=== PATIENT | female | born 1930 | race Caucasian/White ===

== ENCOUNTER 2017-04-19 08:27 | Inpatient (IN) | payer MEDICARE ==
[2017-04-19 09:10] LABS: #Eosinphils 0.1 thou/uL (0.0-0.7); #Lymphocytes 0.9 thou/uL (1.20-3.40); #Monocytes 0.7 thou/uL (0.11-0.59); #Neutrophils 3.9 thou/uL (1.40-6.50); %Basophils 0.8 % (0.0-1.0); %Eosinophils 1.4 % (0.0-10.0); %Lymphocytes 15.5 % (21.0-51.0); %Monocytes 13.3 % (0.0-10.0); Hematocrit 35.7 % (36.0-47.0); Mean Platelet Volume 6.2 fL (7.4-10.4); Red Blood Cell (RBC) Count 3.72 mill/uL (4.20-5.40); White Blood Cell (WBC) Count 5.6 thou/uL (4.8-10.8)
[2017-04-19 09:18] LABS: PTT 30.4 SEC (22.9-36.1); Prothrombin Time 13.6 SEC (12.0-14.7)
[2017-04-19 09:28] LABS: Lactic Acid - Sepsis 0.7 mmol/L (0.5-2.2)
[2017-04-19 09:31] LABS: ALT (SGPT) 8 U/L (8-55); AST (SGOT) 20 U/L (5-34); Alkaline Phosphatase 62 U/L (40-150); Anion Gap 6 mmol/L (10-20); BUN (Urea Nitrogen) 12 mg/dL (9.8-20.1); Bilirubin, Total 0.9 mg/dL (0.2-1.2); CK (CPK) 89 U/L (29-168); Calc. Creatinine Clearance 0 mL/min (70-130); Calcium 9.5 mg/dL (7.8-10.44); Carbon Dioxide 33 mmol/L (23-31); Chloride 104 mmol/L (98-107); Estimated GFR-MDRD 75; Protein, Total 7.2 g/dL (6.0-8.3)
[2017-04-19 09:36] LABS: Troponin I Less than 0.010 ng/mL (< 0.028)
--- NOTE | 2017-04-19 09:58 | RAD ---
PORTABLE CHEST: Date: 04/19/17 HISTORY: Dyspnea. COMPARISON: 04/19/17. FINDINGS: Cardiomegaly with prominent aortic calcification again noted. The lungs remain clear of infiltrate. N o evidence of vascular congestion or edema. Deformities of both humeral heads again noted. IMPRESSION: No acute finding or interval change noted. POS: [facility]
--- NOTE | 2017-04-19 10:11 | ULT ---
BILATERAL LOWER EXTREMITY VENOUS DUPLEX STUDY: Date: 04/19/17 HISTORY: Bilateral lower extremity pain and edema with redness. FINDINGS: Deep veins of both lower extremities evaluated with ultrasound and Doppler. Color Doppler, spectral a nalysis, and compression studies performed. Deep veins of both lower extremities show normal compression and blood flow. No evidence of deep veno us thrombosis. IMPRESSION: No evidence of lower extremity deep venous thrombosis identified. POS: [facility]
[2017-04-19 10:55] LABS: Bilirubin Negative (Negative); Blood, Urine Negative (Negative); Glucose, Urine (Dipstick) Negative (Negative); Ketone, Urine Trace mg/dL (Negative); Nitrite Negative (Negative); Protein, Urine (Dipstick) Negative (Neg-Trace); Urobilinogen 0.2 mg/dL (0.2-1.0)
--- NOTE | 2017-04-19 11:04 | CT ---
CTA OF THE THORAX UTILIZING IV CONTRAST WITH PE PROTOCOL AND 3D REFORMATTED IMAGING: Date: 04/19/17 INDICATION: 86-year-old female with dyspnea, bilateral leg swelling, and redness. COMPARISON: CT of the chest, abdomen, and pelvis dated 02/24/11. FINDINGS: No central or segmental pulmonary embolus is evident. There is stable enlargement of the pulmonary arterial tree. Vascular calcifications involving the cor onary arteries and thoracic aorta. There is moderate cardiomegaly. There is a small pericardial effus ion. No pathologically enlarged lymph nodes are evident. There is fluid in the esophagus which may be related to dysmotility or reflux. There is worsening scattered reticular nodularity seen in portions of the right upper lobe and right lower lobe, particularly on image 55 of series 2 and image 38 of s eries 2. There is a new peripheral noncalcified subpleural pulmonary nodule within the right upper lo be best seen on image 31 of series 2. There is enlarged subpleural pulmonary nodule within the right lower lobe on image 60 of series 2 measuring 9.0 mm. There is a stable sub-4 mm, subpleural pulmonary nodule in the left upper lobe. There is scattered central lobular emphysema. There is a fat-containi ng left Bochdalek's hernia. There are calcified granuloma within the liver. There is stable scoliosis of the thoracic spine. There is diffuse osteopenia. No acute osseous abnormality is evident. IMPRESSION: 1. No central or segmental pulmonary embolus. 2. New nodularity within the right upper and right lower lobe. Short-term follow-up in 6-8 weeks is recommended to document stability. 3. Stable emphysema. 4. Stable enlargement of the pulmonary arterial tree likely related to underlying secondary pulmonar y artery hypertension. 5. Findings of prior granulomatous disease. POS: [facility]
[2017-04-19] MEDS ORDERED: methylPREDNISolone Sod Succ/PF 125 MG/2 ML VIAL ONE (12:03)
[2017-04-19] MEDS ORDERED: Water For Inject, Bacteriostat 30 ML ONE (12:03)
--- NOTE | 2017-04-19 13:05 | HP ---
PRIMARY CARE PHYSICIAN: [facility] call admission. REASON FOR ADMISSION: Acute hypoxic respiratory failure, bilateral lower extremity cellulitis. HISTORY OF PRESENT ILLNESS: An 86-year-old female who is a very poor historian , who lives at [facility]. From there, she was sent to the emergency room because of bilateral lower extremity swelling, redness and pain. When she presented to emergency room, she was saturating only 80% on room air and with her oxygen saturation improved to normal. The patient does not report any fever, but she does report congestion in her chest. She does report a cough and she is feeling shortness of breath. She does report lower extremity pain. She denies any calf tenderness. She denies any immobilization. In the emergency room, patient had a full workup done with a CT angiography, which did not show any pulmonary embolism. It showed stable emphysema and new nodularity in the right upper and right lower lobe. Ultrasound was negative for any deep vein thrombosis in both lower extremity and chest x-ray was not showing any new finding. Routine blood test in the emergency room was unremarkable. Patient has elevated BNP, but patient never had any diagnosis of congestive heart failure. ALLERGIES: PENICILLIN. CURRENT HOME MEDICATIONS: Celexa 20 mg daily, hyoscyamine 0.125 mg 3 times daily p.r.n., Synthroid 100 mcg p.o. daily, travoprost ophthalmic drops as needed, loperamide as needed. REVIEW OF SYSTEMS: The following complete review of systems was negative, unless otherwise mentioned in the HPI or below: CONSTITUTIONAL: Weight loss or gain, ability to conduct usual activities. SKIN: Rash, itching. EYES: Double vision, pain. ENT/MOUTH: Nose bleeding, neck stiffness, pain, tenderness. CARDIOVASCULAR: Palpitations, dyspnea on exertion, orthopnea. RESPIRATORY: Shortness of breath, wheezing, cough, hemoptysis, fever or night sweats. GASTROINTESTINAL: Poor appetite, abdominal pain, heartburn, nausea, vomiting, constipation, or diarrhea. GENITOURINARY: Urgency, frequency, dysuria, nocturia. MUSCULOSKELETAL: Pain, swelling. NEUROLOGIC/PSYCHIATRIC: Anxiety, depression. ALLERGY/IMMUNOLOGIC: Skin rash, bleeding tendency. The review of systems is limited because of patient's level of alertness and that is why is not reliable. PAST MEDICAL HISTORY: Hypertension, pulmonary fibrosis, COPD, dementia, osteoporosis, gastroesophageal reflux disease, hypothyroidism and protein- calorie malnutrition. PAST SURGICAL HISTORY: Cholecystectomy, recorder placed in her left chest wall for her heart monitoring. PAST PSYCHIATRIC HISTORY: Anxiety and depression. SOCIAL HISTORY: The patient lives at [facility]. No history of tobacco, alcohol or illicit drug abuse. FAMILY HISTORY: Unable to obtain from patient. The patient does not have any clue of about any family history. EMERGENCY ROOM COURSE: Patient is given Solu-Medrol 125 mg and DuoNeb therapy x2. PHYSICAL EXAMINATION: VITAL SIGNS: On arrival, blood pressure 166/88, pulse 88, respiratory rate 21, temperature 98.5, saturation 92% on 2 liter oxygen. Weight 43 kilograms. GENERAL: The patient is thin appearing, no obvious acute distress. HEAD: Normocephalic, atraumatic. EYES: Pupils round, reactive to light. Extraocular muscles intact. ENT: Oropharynx within normal limits. Moist mucous membranes. No oral lesions. No pharyngeal erythema, no exudate. NECK: Supple, no JVD, no thyromegaly, no carotid bruit, no meningeal signs of irritation. LUNGS: Bilateral coarse breath sounds. Air entry reduced. Few end expiratory wheezing heard. No rales noted. CARDIAC: S1, S2 regular. No murmur, no gallop, no rub. ABDOMEN: Soft, bowel sounds present, nontender, nondistended. No organomegaly , no mass, no suprapubic tenderness. BACK: Unremarkable. No CVA tenderness. EXTREMITIES: Upper extremity: Passive movement of all joints are normal. Lower extremity: Bilateral lower extremity edema noted, erythema noted, tenderness noted. No calf tenderness. Distal pulsation intake. SKIN: Cellulitis type of picture in both lower extremities. HEMATOLOGICAL: No lymphadenopathy. PSYCHIATRIC: Normal affect. NEUROLOGIC: Grossly nonfocal examination. Patient is moving all 4 limbs, plantar bilateral flexor. SIGNIFICANT LABS: EKG based on my review reveals normal sinus rhythm, left atrial enlargement. CT angiography negative for pulmonary embolism, stable emphysema, new nodularity of right upper and right lower lobe. Ultrasound of lower extremity negative for any DVT. SIGNIFICANT LABS: WBC 5.6, hemoglobin 11.4, platelet 243. INR 1.0. BMP: Sodium 139, potassium 4.1, chloride 104, carbon dioxide 33, anion gap 6, BUN 12 , creatinine 0.73, glucose 83, calcium 9.5. Lactic acid 0.7. LFT: AST 20, ALT 8, alkaline phosphatase 62, albumin 4.2, CK-MB 4.1, CK 89. Troponin I less than 0.010. BNP 107.0. Urinalysis is normal. ASSESSMENT AND PLAN/IMPRESSION: 1. Acute on chronic hypoxic respiratory failure with hypoxia. 2. Bilateral lower extremity cellulitis. 3. Elevated BNP, rule out diastolic congestive heart failure. 4. Chronic obstructive pulmonary disease/pulmonary fibrosis with exacerbation. 5. Moderate to severe protein-calorie malnutrition. 6. Anemia, normocytic normochromic. 7. Hypothyroidism. 8. Glaucoma. 9. Anxiety and depression. 10. Hypertension. PLAN: At this point, thromboembolic disorder completely excluded with a CT angio and ultrasound of lower extremity. This patient has underlying hypoxia that may be related with her underlying COPD/pulmonary fibrosis flare up. We will obtain echocardiography to assess ejection fraction and other structural abnormality. We will continue with Solu-Medrol 20 mg IV q.8 hourly, DuoNeb therapy q.6 hourly, Dulera 2 puffs inhalation b.i.d. We will start empiric antibiotic therapy with Rocephin and vancomycin. We will monitor on telemetry floor and do serial cardiac enzymes to rule out acute coronary syndrome. Deep venous thrombosis prophylaxis, Lovenox 30 mg subcutaneously daily. Gastrointestinal prophylaxis, Pepcid 20 mg p.o. b.i.d. CODE STATUS is uncertain. At this point, we will keep as a FULL CODE. No family member available on phone or bedside to discuss code status and the patient cannot make her own decisions. Disposition plan based on clinical course, we are expecting patient's stay in hospital more than 2 midnights. IN EVENING PT SON CAME AND HE IS MPOA, DISCUSSED CODE STATUS WITH HIM AND CONFIRMED DNR STATUS AND ANSWERED ALL HIS QUESTIONS AND DNR ORDER WRITTEN PER SON'S REQUEST ANNIA
[2017-04-19 13:13] LABS: Troponin I 0.017 ng/mL (< 0.028)
[2017-04-19] MEDS ORDERED: Ondansetron HCl/PF 4 MG/2 ML Vial IVP PRN ×2 (13:53→14:00)
[2017-04-19] MEDS ORDERED: Acetaminophen 325 MG TAB PO PRN ×2 (13:53→14:00)
[2017-04-19] MEDS ORDERED: Ondansetron ODT 4 MG TAB PO PRN ×2 (13:53→14:00)
[2017-04-19] MEDS ORDERED: Mag-Al 1200 mg/1200 mg/30 ML UDCUP PO PRN (14:00)
[2017-04-19] MEDS ORDERED: Sodium Chloride 0.9% 1,000 ML IV SCH (14:00)
[2017-04-19] MEDS ORDERED: Milk Of Magnesia 30 ML UDCUP PO PRN (14:00)
[2017-04-19] MEDS ORDERED: Loratadine 10 MG TAB PO PRN (14:00)
[2017-04-19] MEDS ORDERED: Artificial Tears 18 DROP/0.9 ML EA EYE PRN (14:00)
[2017-04-19] MEDS ORDERED: Senokot 8.6 MG TAB PO PRN (14:00)
[2017-04-19] MEDS ORDERED: hydrALAZINE 20 MG/ML VIAL SLOW IVP PRN (14:00)
[2017-04-19] MEDS ORDERED: cefTRIAXone\\ROCEPHIN 1 GM in Sodium Chloride 0.9% 100 ML IVPB SCH (14:00)
[2017-04-19] MEDS ORDERED: Eucerin (Mineral Oil/Petrolatum,White) 30 gm Jar TOP PRN (14:00)
[2017-04-19] MEDS ORDERED: Chloraseptic Spray 180 ml Bottle PO PRN (14:00)
[2017-04-19] MEDS ORDERED: Sodium Chloride 0.65% Nasal 44 ML BOT EA NARE PRN (14:00)
[2017-04-19] MEDS ORDERED: Loperamide HCl 2 MG CAP PO PRN (14:00)
[2017-04-19 14:04] VITALS: BMI 18.5
[2017-04-19 15:24] LABS: Troponin I 0.012 ng/mL (< 0.028)
[2017-04-19] MEDS ORDERED: ISOVUE-370 76%-LOCM 1 ML ONE (15:52)
[2017-04-19] MEDS: cefTRIAXone\\ROCEPHIN 1 GM, Syringe 0.4 ML in Sterile Water 9.6 ML SLOW IVP SCH (15:54)
[2017-04-19] MEDS: Vancomycin HCl 500 MG, Admixture Fee 1 EACH in Sodium Chloride 0.9% 100 ML IVPB SCH (15:57)
[2017-04-19] MEDS ORDERED: methylPREDNISolone Sod Succ/PF 125 MG/2 ML VIAL IVP SCH (18:00)
[2017-04-19] MEDS: Famotidine 20 MG TAB PO SCH (22:09)
[2017-04-20 05:54] LABS: #Lymphocytes 0.5 thou/uL (1.20-3.40); #Monocytes 0.2 thou/uL (0.11-0.59); #Neutrophils 3.2 thou/uL (1.40-6.50); %Basophils 0.7 % (0.0-1.0); %Eosinophils 0.4 % (0.0-10.0); Hematocrit 32.3 % (36.0-47.0); Mean Platelet Volume 6.9 fL (7.4-10.4); Red Blood Cell (RBC) Count 3.37 mill/uL (4.20-5.40); White Blood Cell (WBC) Count 3.8 thou/uL (4.8-10.8)
[2017-04-20] MEDS ORDERED: Levothyroxine Sodium 100 MCG TAB PO SCH (06:00)
[2017-04-20 06:15] LABS: Anion Gap 12 mmol/L (10-20); BUN (Urea Nitrogen) 14 mg/dL (9.8-20.1); Calc. Creatinine Clearance 38 mL/min (70-130); Calcium 8.6 mg/dL (7.8-10.44); Carbon Dioxide 25 mmol/L (23-31); Chloride 101 mmol/L (98-107); Estimated GFR-MDRD 79
[2017-04-20] MEDS ORDERED: Citalopram 20 MG TAB PO SCH (09:00)
--- NOTE | 2017-04-20 09:23 | PDOC.PN ---
- Subjective Encounter Start Date: 04/20/17 Encounter Start Time: 08:00 -: old records requested/rev Patient seen and examined. No new complaints. No overnight events - Objective Resuscitation Status: Resuscitation Status DNR:Do Not Resuscitate MAR Reviewed: Yes Vital Signs & Weight: Vital Signs (12 hours) Temp Pulse Resp BP Pulse Ox 04/20/17 08:06 88 L 04/20/17 08:05 93 16 04/20/17 08:00 97.6 F 95 16 141/69 H 94 L 04/20/17 04:00 97.6 F 90 14 128/60 94 L 04/20/17 00:55 98 Weight Weight 95 lb 0.308 oz I&O: 04/19/17 04/20/17 04/21/17 06:59 06:59 06:59 Intake Total 1477 Output Total 650 Balance 827 Result Diagrams: 04/20/17 05:16 04/20/17 05:16 EKG Reviewed by me: Yes Phys Exam - Physical Examination Constitutional: NAD HEENT: PERRLA, moist MMs, sclera anicteric Neck: no JVD, supple Respiratory: no rales, wheezing present Cardiovascular: RRR, no significant murmur, no rub Gastrointestinal: soft, non-tender, no distention, positive bowel sounds Musculoskeletal: pulses present, edema present cellulitis improving Neurological: non-focal, normal sensation Psychiatric: normal affect Skin: no rash, normal turgor Dx/Plan (1) Acute respiratory failure with hypoxia Code(s): J96.01 - ACUTE RESPIRATORY FAILURE WITH HYPOXIA Status: Acute (2) Anxiety and depression Code(s): F41.8 - OTHER SPECIFIED ANXIETY DISORDERS Status: Acute (3) Cellulitis of both lower extremities Code(s): L03.115 - CELLULITIS OF RIGHT LOWER LIMB; L03.116 - CELLULITIS OF LEFT LOWER LIMB Status: Acute (4) Anemia, normocytic normochromic Code(s): D64.9 - ANEMIA, UNSPECIFIED Status: Chronic (5) Dementia Code(s): F03.90 - UNSPECIFIED DEMENTIA WITHOUT BEHAVIORAL DISTURBANCE Status: Chronic (6) HTN (hypertension) Code(s): I10 - ESSENTIAL (PRIMARY) HYPERTENSION Status: Chronic (7) Hypothyroidism Code(s): E03.9 - HYPOTHYROIDISM, UNSPECIFIED Status: Chronic (8) Protein-calorie malnutrition, moderate Code(s): E44.0 - MODERATE PROTEIN-CALORIE MALNUTRITION Status: Chronic (9) Pulmonary fibrosis Code(s): J84.10 - PULMONARY FIBROSIS, UNSPECIFIED Status: Chronic - Plan cont current plan of care, continue antibiotics * continue po lasix * continue vancomycin and rocephin * echo pending * monitor oxygen level * medication reviewed as below * symptomatic treatment * nutritional support * repeat labs tomorrow. * continue iv solumedrol Review of Systems - Review of Systems Constitutional: negative: Fever, Chills, Sweats, Weakness, Malaise, Other Respiratory: Shortness of Breath, SOB with Excertion. negative: Cough, Dry, Hemoptysis, Pleuritic Pain, Sputum, Wheezing Cardiovascular: negative: Chest Pain, Palpitations, Orthopnea, Paroxysmal Noc. Dyspnea, Edema, Light Headedness, Other Gastrointestinal: negative: Nausea, Vomiting, Abdominal Pain, Diarrhea, Constipation, Melena, Hematochezia, Other Genitourinary: negative: Dysuria, Frequency, Incontinence, Hematuria, Retention , Other Musculoskeletal: negative: Neck Pain, Shoulder Pain, Arm Pain, Back Pain, Hand Pain, Leg Pain, Foot Pain, Other Skin: negative: Rash, Lesions, Jesus Alberto, Bruising, Other Other: not reliable due to dementia - Medications/Allergies Allergies/Adverse Reactions: Allergies Allergy/AdvReac Type Severity Reaction Status Date / Time Penicillins Allergy Verified 03/30/14 22:41 Medications: Current Medications Acetaminophen (Tylenol) 650 mg PO Q4H PRN PRN Reason: Headache/Fever or Pain Hydrocodone Bitart/Acetaminophen ([place] 5/325) 1 tab PO Q4H PRN PRN Reason: Moderate Pain (4-6) Al Hydroxide/Mg Hydroxide (Maalox) 30 ml PO Q6H PRN PRN Reason: Heartburn or Indigestion Albuterol/Ipratropium (Duoneb) 3 ml NEB [id number] PRN PRN Reason: SOB &/or Wheezing Albuterol/Ipratropium (Duoneb) 3 ml NEB [id number] [facility] Last Admin: 04/20/17 08:05 Dose: 3 ml Artificial Tears (Tears Naturale) 0 drop EA EYE PRN PRN PRN Reason: Dry Eyes Citalopram Hydrobromide (Celexa) 20 mg PO DAILY [facility] Enoxaparin Sodium (Lovenox) 30 mg SC 0900 [facility] Famotidine (Pepcid) 20 mg PO BID [facility] Last Admin: 04/19/17 22:09 Dose: 20 mg Guaifenesin (Robitussin Sf) 200 mg PO Q4H PRN PRN Reason: Cough Hydralazine HCl (Apresoline) 10 mg SLOW IVP Q4H PRN PRN Reason: Systolic BP > 180 Ceftriaxone Sodium 1 gm/ (Syringe 0.4 ml/ Sterile Water) 10 mls @ 120 mls/hr SLOW IVP 1500 [facility] Last Admin: 04/19/17 15:54 Dose: 10 mls Vancomycin HCl 500 mg/Miscellaneous Medication 1 each/ Sodium Chloride 100 mls @ 100 mls/hr IVPB 1600 [facility] Last Admin: 04/19/17 15:57 Dose: 100 mls Levothyroxine Sodium (Synthroid) 100 mcg PO 0600 [facility] Last Admin: 04/20/17 05:56 Dose: 100 mcg Loperamide HCl (Imodium) 2 mg PO PRN PRN PRN Reason: Diarrhea/Loose Stools Loratadine (Claritin) 10 mg PO DAILYPRN PRN PRN Reason: Sinus Symptoms Magnesium Hydroxide (Milk Of Magnesium) 30 ml PO DAILYPRN PRN PRN Reason: Constipation Methylprednisolone Sodium Succinate (Solu-Medrol) 20 mg IVP Q8HR [facility] Last Admin: 04/20/17 05:56 Dose: 20 mg Mineral Oil/White Petrolatum (Eucerin Cream) 0 gm TOP BIDPRN PRN PRN Reason: Dry Skin Miscellaneous Medication (Pharmacy To Dose) 1 each IVPB ASDIR [facility] Ondansetron HCl (Zofran Odt) 4 mg PO Q6H PRN PRN Reason: Nausea/Vomiting Ondansetron HCl (Zofran) 4 mg IVP Q6H PRN PRN Reason: Nausea/Vomiting Phenol (Chloraseptic [place] 180 Ml Bot) 0 ml PO PRN PRN PRN Reason: Sore Throat Saccharomyces Boulardii (Florastor) 250 mg PO DAILY [facility] Senna (Senokot) 2 tab PO HSPRN PRN PRN Reason: Constipation Sodium Chloride (Flush - Normal Saline) 10 ml IVF Q12HR [facility] Last Admin: 04/19/17 22:10 Dose: 10 ml Sodium Chloride (Flush - Normal Saline) 10 ml IVF PRN PRN PRN Reason: Saline Flush Sodium Chloride ([place] Nasal [place] 0.65%) 0 ml EA NARE QIDPRN PRN PRN Reason: Nasal Congestion
[2017-04-20] MEDS: Famotidine 20 MG TAB PO SCH ×2 (09:36→21:39)
[2017-04-20] MEDS: Saccharomyces boulardii 250 MG CAP PO SCH (09:37)
[2017-04-20] MEDS: Enoxaparin Sodium 30 MG/0.3 ML SYRINGE SC SCH (09:37)
[2017-04-20] MEDS ORDERED: Hyoscyamine Sulfate SL 0.125 mg Tablet SL PRN (10:29)
[2017-04-20] MEDS ORDERED: Fluticasone Propionate Nasal Spray 16 gm Bottle NASAL PRN (12:15)
[2017-04-20] MEDS: ALPRAZolam 0.25 MG TAB PO PRN ×2 (13:12→21:40)
[2017-04-20] MEDS: cefTRIAXone\\ROCEPHIN 1 GM, Syringe 0.4 ML in Sterile Water 9.6 ML SLOW IVP SCH (14:03)
[2017-04-20] MEDS: Vancomycin HCl 500 MG, Admixture Fee 1 EACH in Sodium Chloride 0.9% 100 ML IVPB SCH (16:12)
[2017-04-20] MEDS: Latanoprost 0.005% Ophth Soln 2.5 ml Bottle EA EYE SCH (21:38)
[2017-04-20] MEDS: HYDROcodone/Acetaminophen 5/325 mg Tablet PO PRN (21:39)
[2017-04-21 05:03] LABS: #Lymphocytes 0.6 thou/uL (1.20-3.40); #Monocytes 0.5 thou/uL (0.11-0.59); #Neutrophils 13.8 thou/uL (1.40-6.50); %Basophils 0.2 % (0.0-1.0); %Eosinophils 0.3 % (0.0-10.0); %Lymphocytes 4.1 % (21.0-51.0); %Monocytes 3.1 % (0.0-10.0); Mean Platelet Volume 7.1 fL (7.4-10.4); Red Blood Cell (RBC) Count 3.33 mill/uL (4.20-5.40); White Blood Cell (WBC) Count 14.9 thou/uL (4.8-10.8)
[2017-04-21 05:06] LABS: Anion Gap 13 mmol/L (10-20); BUN (Urea Nitrogen) 19 mg/dL (9.8-20.1); Calc. Creatinine Clearance 35 mL/min (70-130); Calcium 8.9 mg/dL (7.8-10.44); Carbon Dioxide 28 mmol/L (23-31); Chloride 100 mmol/L (98-107); Estimated GFR-MDRD 73
[2017-04-21] MEDS: Levothyroxine Sodium 75 MCG TAB PO SCH (05:22)
[2017-04-21] MEDS: Famotidine 20 MG TAB PO SCH ×2 (09:07→20:54)
[2017-04-21] MEDS: Citalopram 20 MG TAB PO SCH (09:07)
[2017-04-21] MEDS: Furosemide 20 MG TAB PO SCH (09:07)
[2017-04-21] MEDS: Multivitamin W/ Minerals 1 TAB PO SCH (09:07)
[2017-04-21] MEDS: Saccharomyces boulardii 250 MG CAP PO SCH (09:07)
[2017-04-21] MEDS: Enoxaparin Sodium 30 MG/0.3 ML SYRINGE SC SCH (09:07)
[2017-04-21] MEDS: ALPRAZolam 0.25 MG TAB PO PRN ×2 (09:07→17:21)
--- NOTE | 2017-04-21 09:59 | PDOC.PN ---
- Subjective Encounter Start Date: 04/21/17 Encounter Start Time: 08:15 Patient seen and examined. No new complaints. No overnight events - Objective Resuscitation Status: Resuscitation Status DNR:Do Not Resuscitate MAR Reviewed: Yes Vital Signs & Weight: Vital Signs (12 hours) Temp Pulse Resp BP Pulse Ox 04/21/17 08:00 98 F 112 H 18 146/73 H 98 04/21/17 07:16 98 04/21/17 07:15 86 16 04/21/17 04:00 97.7 F 94 20 177/82 H 94 L 04/21/17 03:01 100 04/21/17 00:00 98.2 F 106 H 20 139/65 100 04/20/17 23:33 92 L Weight Admit Weight 95 lb 0.304 oz Weight 92 lb 3.2 oz I&O: 04/20/17 04/21/17 04/22/17 06:59 06:59 06:59 Intake Total 1477 1200 Output Total 650 920 Balance 827 280 Result Diagrams: 04/21/17 04:27 04/21/17 04:27 Additional Labs: Accuchecks 04/21/17 05:17 POC Glucose 110 EKG Reviewed by me: Yes (nsr) Phys Exam - Physical Examination Constitutional: NAD HEENT: PERRLA, moist MMs, sclera anicteric Neck: no JVD, supple Respiratory: no wheezing, no rales, no rhonchi Cardiovascular: RRR, no significant murmur, no rub Gastrointestinal: soft, non-tender, no distention, positive bowel sounds Musculoskeletal: no edema, pulses present cellulitis improving Neurological: non-focal, normal sensation Lymphatic: no nodes Psychiatric: normal affect Skin: no rash, normal turgor Dx/Plan (1) Acute respiratory failure with hypoxia Code(s): J96.01 - ACUTE RESPIRATORY FAILURE WITH HYPOXIA Status: Acute (2) Anxiety and depression Code(s): F41.8 - OTHER SPECIFIED ANXIETY DISORDERS Status: Acute (3) Cellulitis of both lower extremities Code(s): L03.115 - CELLULITIS OF RIGHT LOWER LIMB; L03.116 - CELLULITIS OF LEFT LOWER LIMB Status: Acute (4) Anemia, normocytic normochromic Code(s): D64.9 - ANEMIA, UNSPECIFIED Status: Chronic (5) Dementia Code(s): F03.90 - UNSPECIFIED DEMENTIA WITHOUT BEHAVIORAL DISTURBANCE Status: Chronic (6) HTN (hypertension) Code(s): I10 - ESSENTIAL (PRIMARY) HYPERTENSION Status: Chronic (7) Hypothyroidism Code(s): E03.9 - HYPOTHYROIDISM, UNSPECIFIED Status: Chronic (8) Protein-calorie malnutrition, moderate Code(s): E44.0 - MODERATE PROTEIN-CALORIE MALNUTRITION Status: Chronic (9) Pulmonary fibrosis Code(s): J84.10 - PULMONARY FIBROSIS, UNSPECIFIED Status: Chronic (10) Acute on chronic diastolic (congestive) heart failure Code(s): I50.33 - ACUTE ON CHRONIC DIASTOLIC (CONGESTIVE) HEART FAILURE Status : Acute (11) Moderate tricuspid regurgitation Code(s): I07.1 - RHEUMATIC TRICUSPID INSUFFICIENCY Status: Chronic - Plan cont current plan of care, continue antibiotics, respiratory therapy * continue vancomycin and rocephin * continue lasix * pt has clinical improvement * will dc solumderol * continue respiratory therapy * expecting discharge soon * medication reviewed as below * symptomatic treatment. Review of Systems - Review of Systems ENT: negative: Ear Pain, Ear Discharge, Nose Pain, Nose Discharge, Nose Congestion, Mouth Pain, Mouth Swelling, Throat Pain, Throat Swelling, Other Respiratory: negative: Cough, Dry, Shortness of Breath, Hemoptysis, SOB with Excertion, Pleuritic Pain, Sputum, Wheezing Cardiovascular: negative: Chest Pain, Palpitations, Orthopnea, Paroxysmal Noc. Dyspnea, Edema, Light Headedness, Other Gastrointestinal: negative: Nausea, Vomiting, Abdominal Pain, Diarrhea, Constipation, Melena, Hematochezia, Other Genitourinary: negative: Dysuria, Frequency, Incontinence, Hematuria, Retention , Other Musculoskeletal: negative: Neck Pain, Shoulder Pain, Arm Pain, Back Pain, Hand Pain, Leg Pain, Foot Pain, Other Skin: negative: Rash, Lesions, Jesus Alberto, Bruising, Other - Medications/Allergies Allergies/Adverse Reactions: Allergies Allergy/AdvReac Type Severity Reaction Status Date / Time Penicillins Allergy Verified 03/30/14 22:41 Medications: Current Medications Acetaminophen (Tylenol) 650 mg PO Q4H PRN PRN Reason: Headache/Fever or Pain Hydrocodone Bitart/Acetaminophen ([place] 5/325) 1 tab PO Q4H PRN PRN Reason: Moderate Pain (4-6) Last Admin: 04/20/17 21:39 Dose: 1 tab Al Hydroxide/Mg Hydroxide (Maalox) 30 ml PO Q6H PRN PRN Reason: Heartburn or Indigestion Albuterol/Ipratropium (Duoneb) 3 ml NEB [id number] PRN PRN Reason: SOB &/or Wheezing Albuterol/Ipratropium (Duoneb) 3 ml NEB [id number] [facility] Last Admin: 04/21/17 07:15 Dose: 3 ml Alprazolam (Xanax) 0.25 mg PO Q8H PRN PRN Reason: Anxiety Last Admin: 04/21/17 09:07 Dose: 0.25 mg Artificial Tears (Tears Naturale) 0 drop EA EYE PRN PRN PRN Reason: Dry Eyes Citalopram Hydrobromide (Celexa) 20 mg PO DAILY [facility] Last Admin: 04/21/17 09:07 Dose: 20 mg Enoxaparin Sodium (Lovenox) 30 mg SC 0900 [facility] Last Admin: 04/21/17 09:07 Dose: 30 mg Famotidine (Pepcid) 20 mg PO BID [facility] Last Admin: 04/21/17 09:07 Dose: 20 mg Fluticasone Propionate (Flonase Nasal [place]) 0 gm NASAL DAILYPRN PRN PRN Reason: Allergies Furosemide (Lasix) 20 mg PO DAILY [facility] Last Admin: 04/21/17 09:07 Dose: 20 mg Guaifenesin (Robitussin Sf) 200 mg PO Q4H PRN PRN Reason: Cough Hydralazine HCl (Apresoline) 10 mg SLOW IVP Q4H PRN PRN Reason: Systolic BP > 180 Hyoscyamine Sulfate (Levsin Sl) 0.125 mg SL ACHS PRN PRN Reason: Indigestion Ceftriaxone Sodium 1 gm/ (Syringe 0.4 ml/ Sterile Water) 10 mls @ 120 mls/hr SLOW IVP 1500 [facility] Last Admin: 04/20/17 14:03 Dose: 10 mls Vancomycin HCl 500 mg/Miscellaneous Medication 1 each/ Sodium Chloride 100 mls @ 100 mls/hr IVPB 1600 [facility] Last Admin: 04/20/17 16:12 Dose: 100 mls Iron/Minerals/Multivitamins (Theragran M) 1 tab PO DAILY [facility] Last Admin: 04/21/17 09:07 Dose: 1 tab Latanoprost (Xalatan 0.005% Ophth Soln) 1 drop EA EYE 2000 [facility] Last Admin: 04/20/17 21:38 Dose: 1 drop Levothyroxine Sodium (Synthroid) 75 mcg PO 0600 [facility] Last Admin: 04/21/17 05:22 Dose: 75 mcg Loperamide HCl (Imodium) 2 mg PO PRN PRN PRN Reason: Diarrhea/Loose Stools Loratadine (Claritin) 10 mg PO DAILYPRN PRN PRN Reason: Sinus Symptoms Magnesium Hydroxide (Milk Of Magnesium) 30 ml PO DAILYPRN PRN PRN Reason: Constipation Mineral Oil/White Petrolatum (Eucerin Cream) 0 gm TOP BIDPRN PRN PRN Reason: Dry Skin Miscellaneous Medication (Pharmacy To Dose) 1 each IVPB ASDIR [facility] Ondansetron HCl (Zofran Odt) 4 mg PO Q6H PRN PRN Reason: Nausea/Vomiting Ondansetron HCl (Zofran) 4 mg IVP Q6H PRN PRN Reason: Nausea/Vomiting Phenol (Chloraseptic [place] 180 Ml Bot) 0 ml PO PRN PRN PRN Reason: Sore Throat Saccharomyces Boulardii (Florastor) 250 mg PO DAILY [facility] Last Admin: 04/21/17 09:07 Dose: 250 mg Senna (Senokot) 2 tab PO HSPRN PRN PRN Reason: Constipation Sodium Chloride (Flush - Normal Saline) 10 ml IVF Q12HR [facility] Last Admin: 04/21/17 09:07 Dose: 10 ml Sodium Chloride (Flush - Normal Saline) 10 ml IVF PRN PRN PRN Reason: Saline Flush Sodium Chloride ([place] Nasal [place] 0.65%) 0 ml EA NARE QIDPRN PRN PRN Reason: Nasal Congestion
[2017-04-21] MEDS: Vancomycin HCl 500 MG, Admixture Fee 1 EACH in Sodium Chloride 0.9% 100 ML IVPB SCH (15:17)
[2017-04-21] MEDS: cefTRIAXone\\ROCEPHIN 1 GM, Syringe 0.4 ML in Sterile Water 9.6 ML SLOW IVP SCH (15:17)
[2017-04-21 16:00] LABS: Vancomycin, Trough 14.3 ug/mL
[2017-04-21] MEDS: Latanoprost 0.005% Ophth Soln 2.5 ml Bottle EA EYE SCH (20:54)
[2017-04-22 05:22] LABS: #Lymphocytes 1.5 thou/uL (1.20-3.40); #Monocytes 0.8 thou/uL (0.11-0.59); #Neutrophils 9.6 thou/uL (1.40-6.50); %Basophils 0.3 % (0.0-1.0); %Eosinophils 0.1 % (0.0-10.0); %Lymphocytes 12.5 % (21.0-51.0); %Monocytes 6.7 % (0.0-10.0); Hematocrit 32.1 % (36.0-47.0); Red Blood Cell (RBC) Count 3.32 mill/uL (4.20-5.40); White Blood Cell (WBC) Count 11.9 thou/uL (4.8-10.8)
[2017-04-22] MEDS: Levothyroxine Sodium 75 MCG TAB PO SCH (05:26)
[2017-04-22] MEDS: ALPRAZolam 0.25 MG TAB PO PRN ×2 (05:26→16:16)
[2017-04-22 05:29] LABS: Anion Gap 10 mmol/L (10-20); BUN (Urea Nitrogen) 17 mg/dL (9.8-20.1); Calc. Creatinine Clearance 35 mL/min (70-130); Calcium 8.6 mg/dL (7.8-10.44); Carbon Dioxide 32 mmol/L (23-31); Chloride 99 mmol/L (98-107); Estimated GFR-MDRD 75
[2017-04-22] MEDS: Multivitamin W/ Minerals 1 TAB PO SCH (09:24)
[2017-04-22] MEDS: Furosemide 20 MG TAB PO SCH (09:24)
[2017-04-22] MEDS: Saccharomyces boulardii 250 MG CAP PO SCH (09:24)
[2017-04-22] MEDS: Citalopram 20 MG TAB PO SCH (09:24)
[2017-04-22] MEDS: Famotidine 20 MG TAB PO SCH ×2 (09:24→21:05)
[2017-04-22] MEDS: Enoxaparin Sodium 30 MG/0.3 ML SYRINGE SC SCH (09:25)
--- NOTE | 2017-04-22 13:00 | PDOC.PN ---
- Subjective Encounter Start Date: 04/22/17 Encounter Start Time: 12:59 Subjective: no new complaints - Objective Resuscitation Status: Resuscitation Status DNR:Do Not Resuscitate MAR Reviewed: Yes Vital Signs & Weight: Vital Signs (12 hours) Temp Pulse Resp BP Pulse Ox 04/22/17 08:00 98.1 F 112 H 20 169/101 H 92 L 04/22/17 07:43 99 04/22/17 07:41 98 12 04/22/17 04:00 97.5 F L 98 16 174/79 H 93 L Weight Admit Weight 95 lb 0.304 oz Weight 90 lb 4 oz I&O: 04/21/17 04/22/17 04/23/17 06:59 06:59 06:59 Intake Total 1200 1050 Output Total 920 525 Balance 280 525 Result Diagrams: 04/22/17 04:41 04/22/17 04:41 Phys Exam - Physical Examination Constitutional: NAD HEENT: PERRLA, moist MMs, sclera anicteric Neck: supple, full ROM Respiratory: clear to auscultation bilateral Cardiovascular: RRR Gastrointestinal: soft, non-tender Musculoskeletal: no edema Neurological: non-focal Psychiatric: normal affect Deviation from normal: pretibial erythema Dx/Plan (1) Acute on chronic diastolic (congestive) heart failure Code(s): I50.33 - ACUTE ON CHRONIC DIASTOLIC (CONGESTIVE) HEART FAILURE Status : Acute (2) Acute respiratory failure with hypoxia Code(s): J96.01 - ACUTE RESPIRATORY FAILURE WITH HYPOXIA Status: Acute (3) Anxiety and depression Code(s): F41.8 - OTHER SPECIFIED ANXIETY DISORDERS Status: Acute (4) Cellulitis of both lower extremities Code(s): L03.115 - CELLULITIS OF RIGHT LOWER LIMB; L03.116 - CELLULITIS OF LEFT LOWER LIMB Status: Acute (5) Anemia, normocytic normochromic Code(s): D64.9 - ANEMIA, UNSPECIFIED Status: Chronic (6) Dementia Code(s): F03.90 - UNSPECIFIED DEMENTIA WITHOUT BEHAVIORAL DISTURBANCE Status: Chronic (7) HTN (hypertension) Code(s): I10 - ESSENTIAL (PRIMARY) HYPERTENSION Status: Chronic (8) Hypothyroidism Code(s): E03.9 - HYPOTHYROIDISM, UNSPECIFIED Status: Chronic (9) Moderate tricuspid regurgitation Code(s): I07.1 - RHEUMATIC TRICUSPID INSUFFICIENCY Status: Chronic (10) Protein-calorie malnutrition, moderate Code(s): E44.0 - MODERATE PROTEIN-CALORIE MALNUTRITION Status: Chronic (11) Pulmonary fibrosis Code(s): J84.10 - PULMONARY FIBROSIS, UNSPECIFIED Status: Chronic - Plan cont current plan of care, continue antibiotics, PT/OT cellulitis improved, continue antimicrobials * .
[2017-04-22] MEDS ORDERED: Clopidogrel Bisulfate 75 MG TAB ONE (14:16)
[2017-04-22] MEDS: cefTRIAXone\\ROCEPHIN 1 GM, Syringe 0.4 ML in Sterile Water 9.6 ML SLOW IVP SCH (14:32)
[2017-04-22 15:38] LABS: Vancomycin, Trough 2.3 ug/mL
[2017-04-22] MEDS: Diabetic Tussin 200 MG/10 ML UDCUP PO PRN (15:48)
[2017-04-22] MEDS: Vancomycin HCl 1 GM in Premix Bag 1 BAG IVPB SCH (16:17)
[2017-04-22] MEDS: Latanoprost 0.005% Ophth Soln 2.5 ml Bottle EA EYE SCH (21:04)
[2017-04-23] MEDS: Diabetic Tussin 200 MG/10 ML UDCUP PO PRN (05:02)
[2017-04-23] MEDS: ALPRAZolam 0.25 MG TAB PO PRN (05:02)
[2017-04-23] MEDS: Levothyroxine Sodium 75 MCG TAB PO SCH (05:02)
[2017-04-23 05:25] LABS: #Basophils 0.1 thou/uL (0.0-0.2); #Eosinphils 0.1 thou/uL (0.0-0.7); #Monocytes 0.9 thou/uL (0.11-0.59); #Neutrophils 5.6 thou/uL (1.40-6.50); %Basophils 0.8 % (0.0-1.0); %Eosinophils 0.7 % (0.0-10.0); %Lymphocytes 13.5 % (21.0-51.0); %Monocytes 11.8 % (0.0-10.0); Hematocrit 33.5 % (36.0-47.0); Mean Platelet Volume 7.2 fL (7.4-10.4); Red Blood Cell (RBC) Count 3.45 mill/uL (4.20-5.40); White Blood Cell (WBC) Count 7.7 thou/uL (4.8-10.8)
[2017-04-23 05:44] LABS: Anion Gap 11 mmol/L (10-20); BUN (Urea Nitrogen) 11 mg/dL (9.8-20.1); Calc. Creatinine Clearance 37 mL/min (70-130); Calcium 8.4 mg/dL (7.8-10.44); Carbon Dioxide 34 mmol/L (23-31); Chloride 94 mmol/L (98-107); Estimated GFR-MDRD 82
[2017-04-23] MEDS: Multivitamin W/ Minerals 1 TAB PO SCH (08:30)
[2017-04-23] MEDS: Citalopram 20 MG TAB PO SCH (08:30)
[2017-04-23] MEDS: Saccharomyces boulardii 250 MG CAP PO SCH (08:30)
[2017-04-23] MEDS: Furosemide 20 MG TAB PO SCH (08:30)
[2017-04-23] MEDS: Famotidine 20 MG TAB PO SCH ×2 (08:30→22:29)
[2017-04-23] MEDS: Enoxaparin Sodium 30 MG/0.3 ML SYRINGE SC SCH (08:31)
--- NOTE | 2017-04-23 09:48 | PDOC.PN ---
- Subjective Encounter Start Date: 04/23/17 Encounter Start Time: 07:30 pt requiring oxygen, still appear weak, overall doing well and improving - Objective Resuscitation Status: Resuscitation Status DNR:Do Not Resuscitate MAR Reviewed: Yes Vital Signs & Weight: Vital Signs (12 hours) Temp Pulse Resp BP Pulse Ox 04/23/17 08:00 97.9 F 113 H 19 151/82 H 92 L 04/23/17 07:18 96 16 94 L 04/23/17 04:00 97.9 F 108 H 22 H 166/84 H 95 04/23/17 00:53 100 16 92 L Weight Admit Weight 95 lb 0.304 oz Weight 89 lb 9 oz I&O: 04/22/17 04/23/17 04/24/17 06:59 06:59 06:59 Intake Total 1050 300 Output Total 525 100 Balance 525 200 Result Diagrams: 04/23/17 04:41 04/23/17 04:41 EKG Reviewed by me: Yes Phys Exam - Physical Examination Constitutional: NAD HEENT: moist MMs Neck: no JVD, supple Respiratory: no wheezing, no rales, no rhonchi reduced air entry Cardiovascular: RRR, no significant murmur, no rub Gastrointestinal: soft, non-tender, no distention, positive bowel sounds Musculoskeletal: no edema, pulses present cellulitis is improving Neurological: non-focal, normal sensation Lymphatic: no nodes Psychiatric: normal affect Skin: no rash, normal turgor Dx/Plan (1) Acute respiratory failure with hypoxia Code(s): J96.01 - ACUTE RESPIRATORY FAILURE WITH HYPOXIA Status: Acute (2) Anxiety and depression Code(s): F41.8 - OTHER SPECIFIED ANXIETY DISORDERS Status: Acute (3) Cellulitis of both lower extremities Code(s): L03.115 - CELLULITIS OF RIGHT LOWER LIMB; L03.116 - CELLULITIS OF LEFT LOWER LIMB Status: Acute (4) Anemia, normocytic normochromic Code(s): D64.9 - ANEMIA, UNSPECIFIED Status: Chronic (5) Dementia Code(s): F03.90 - UNSPECIFIED DEMENTIA WITHOUT BEHAVIORAL DISTURBANCE Status: Chronic (6) HTN (hypertension) Code(s): I10 - ESSENTIAL (PRIMARY) HYPERTENSION Status: Chronic (7) Hypothyroidism Code(s): E03.9 - HYPOTHYROIDISM, UNSPECIFIED Status: Chronic (8) Protein-calorie malnutrition, moderate Code(s): E44.0 - MODERATE PROTEIN-CALORIE MALNUTRITION Status: Chronic (9) Pulmonary fibrosis Code(s): J84.10 - PULMONARY FIBROSIS, UNSPECIFIED Status: Chronic (10) Acute on chronic diastolic (congestive) heart failure Code(s): I50.33 - ACUTE ON CHRONIC DIASTOLIC (CONGESTIVE) HEART FAILURE Status : Acute (11) Moderate tricuspid regurgitation Code(s): I07.1 - RHEUMATIC TRICUSPID INSUFFICIENCY Status: Chronic - Plan cont current plan of care, continue antibiotics * pt does not need any monitor now, today she has asymptomatic 7 beat SVT but does not need any intervention, related with duoneb therapy * medication reviewed as below * symptomatic treatment * continue rocephin and vancomycin * she will need oxygen all the time at long term * will monitor today to medical floor * eventual placement to SNU. Review of Systems - Review of Systems Constitutional: Weakness, Malaise. negative: Fever, Chills, Sweats, Other ENT: negative: Ear Pain, Ear Discharge, Nose Pain, Nose Discharge, Nose Congestion, Mouth Pain, Mouth Swelling, Throat Pain, Throat Swelling, Other Respiratory: negative: Cough, Dry, Shortness of Breath, Hemoptysis, SOB with Excertion, Pleuritic Pain, Sputum, Wheezing Cardiovascular: negative: Chest Pain, Palpitations, Orthopnea, Paroxysmal Noc. Dyspnea, Edema, Light Headedness, Other Gastrointestinal: negative: Nausea, Vomiting, Abdominal Pain, Diarrhea, Constipation, Melena, Hematochezia, Other Genitourinary: negative: Dysuria, Frequency, Incontinence, Hematuria, Retention , Other Musculoskeletal: negative: Neck Pain, Shoulder Pain, Arm Pain, Back Pain, Hand Pain, Leg Pain, Foot Pain, Other - Medications/Allergies Allergies/Adverse Reactions: Allergies Allergy/AdvReac Type Severity Reaction Status Date / Time Penicillins Allergy Verified 03/30/14 22:41 Medications: Current Medications Acetaminophen (Tylenol) 650 mg PO Q4H PRN PRN Reason: Headache/Fever or Pain Hydrocodone Bitart/Acetaminophen ([place] 5/325) 1 tab PO Q4H PRN PRN Reason: Moderate Pain (4-6) Last Admin: 04/20/17 21:39 Dose: 1 tab Al Hydroxide/Mg Hydroxide (Maalox) 30 ml PO Q6H PRN PRN Reason: Heartburn or Indigestion Albuterol/Ipratropium (Duoneb) 3 ml NEB [id number] PRN PRN Reason: SOB &/or Wheezing Albuterol/Ipratropium (Duoneb) 3 ml NEB [id number] [facility] Last Admin: 04/23/17 07:18 Dose: 3 ml Alprazolam (Xanax) 0.25 mg PO Q8H PRN PRN Reason: Anxiety Last Admin: 04/23/17 05:02 Dose: 0.25 mg Artificial Tears (Tears Naturale) 0 drop EA EYE PRN PRN PRN Reason: Dry Eyes Citalopram Hydrobromide (Celexa) 20 mg PO DAILY [facility] Last Admin: 04/23/17 08:30 Dose: 20 mg Enoxaparin Sodium (Lovenox) 30 mg SC 0900 [facility] Last Admin: 04/23/17 08:31 Dose: 30 mg Famotidine (Pepcid) 20 mg PO BID [facility] Last Admin: 04/23/17 08:30 Dose: 20 mg Fluticasone Propionate (Flonase Nasal [place]) 0 gm NASAL DAILYPRN PRN PRN Reason: Allergies Furosemide (Lasix) 20 mg PO DAILY [facility] Last Admin: 04/23/17 08:30 Dose: 20 mg Guaifenesin (Robitussin Sf) 200 mg PO Q4H PRN PRN Reason: Cough Last Admin: 04/23/17 05:02 Dose: 200 mg Hydralazine HCl (Apresoline) 10 mg SLOW IVP Q4H PRN PRN Reason: Systolic BP > 180 Hyoscyamine Sulfate (Levsin Sl) 0.125 mg SL ACHS PRN PRN Reason: Indigestion Ceftriaxone Sodium 1 gm/ (Syringe 0.4 ml/ Sterile Water) 10 mls @ 120 mls/hr SLOW IVP 1500 [facility] Last Admin: 04/22/17 14:32 Dose: 10 mls Vancomycin HCl 1 gm/ Device 200 mls @ 200 mls/hr IVPB 1600 [facility] Last Admin: 04/22/17 16:17 Dose: 200 mls Iron/Minerals/Multivitamins (Theragran M) 1 tab PO DAILY [facility] Last Admin: 04/23/17 08:30 Dose: 1 tab Latanoprost (Xalatan 0.005% Oph Soln) 1 drop EA EYE 2000 [facility] Last Admin: 04/22/17 21:04 Dose: 1 drop Levothyroxine Sodium (Synthroid) 75 mcg PO 0600 [facility] Last Admin: 04/23/17 05:02 Dose: 75 mcg Loperamide HCl (Imodium) 2 mg PO PRN PRN PRN Reason: Diarrhea/Loose Stools Loratadine (Claritin) 10 mg PO DAILYPRN PRN PRN Reason: Sinus Symptoms Last Admin: 04/22/17 15:48 Dose: 10 mg Magnesium Hydroxide (Milk Of Magnesium) 30 ml PO DAILYPRN PRN PRN Reason: Constipation Mineral Oil/White Petrolatum (Eucerin Cream) 0 gm TOP BIDPRN PRN PRN Reason: Dry Skin Miscellaneous Medication (Pharmacy To Dose) 1 each IVPB ASDIR [facility] Ondansetron HCl (Zofran Odt) 4 mg PO Q6H PRN PRN Reason: Nausea/Vomiting Ondansetron HCl (Zofran) 4 mg IVP Q6H PRN PRN Reason: Nausea/Vomiting Phenol (Chloraseptic [place] 180 Ml Bot) 0 ml PO PRN PRN PRN Reason: Sore Throat Saccharomyces Boulardii (Florastor) 250 mg PO DAILY [facility] Last Admin: 04/23/17 08:30 Dose: 250 mg Senna (Senokot) 2 tab PO HSPRN PRN PRN Reason: Constipation Sodium Chloride (Flush - Normal Saline) 10 ml IVF Q12HR [facility] Last Admin: 04/23/17 08:31 Dose: 10 ml Sodium Chloride (Flush - Normal Saline) 10 ml IVF PRN PRN PRN Reason: Saline Flush Sodium Chloride (Gray Nasal [place] 0.65%) 0 ml EA NARE QIDPRN PRN PRN Reason: Nasal Congestion
[2017-04-23] MEDS: cefTRIAXone\\ROCEPHIN 1 GM, Syringe 0.4 ML in Sterile Water 9.6 ML SLOW IVP SCH (14:15)
[2017-04-23] MEDS: Vancomycin HCl 1 GM in Premix Bag 1 BAG IVPB SCH (16:31)
[2017-04-23] MEDS: Latanoprost 0.005% Ophth Soln 2.5 ml Bottle EA EYE SCH (22:29)
[2017-04-24] MEDS: Levothyroxine Sodium 75 MCG TAB PO SCH (06:03)
[2017-04-24 06:10] LABS: #Eosinphils 0.3 thou/uL (0.0-0.7); #Lymphocytes 1.3 thou/uL (1.20-3.40); #Monocytes 0.8 thou/uL (0.11-0.59); #Neutrophils 5.4 thou/uL (1.40-6.50); %Basophils 0.4 % (0.0-1.0); %Eosinophils 3.6 % (0.0-10.0); %Lymphocytes 16.6 % (21.0-51.0); %Monocytes 10.8 % (0.0-10.0); Hematocrit 34.7 % (36.0-47.0); Mean Platelet Volume 7.3 fL (7.4-10.4); Red Blood Cell (RBC) Count 3.58 mill/uL (4.20-5.40); White Blood Cell (WBC) Count 7.8 thou/uL (4.8-10.8)
[2017-04-24 06:21] LABS: Anion Gap 10 mmol/L (10-20); BUN (Urea Nitrogen) 9 mg/dL (9.8-20.1); Calc. Creatinine Clearance 38 mL/min (70-130); Calcium 8.5 mg/dL (7.8-10.44); Carbon Dioxide 33 mmol/L (23-31); Chloride 96 mmol/L (98-107); Estimated GFR-MDRD 86
[2017-04-24] MEDS: HYDROcodone/Acetaminophen 5/325 mg Tablet PO PRN (10:01)
[2017-04-24] MEDS: Saccharomyces boulardii 250 MG CAP PO SCH ×2 (10:01→11:26)
[2017-04-24] MEDS: Famotidine 20 MG TAB PO SCH ×2 (10:02→12:08)
[2017-04-24] MEDS: Furosemide 20 MG TAB PO SCH ×2 (10:02→12:08)
[2017-04-24] MEDS: Citalopram 20 MG TAB PO SCH ×2 (10:02→12:08)
[2017-04-24] MEDS: Enoxaparin Sodium 30 MG/0.3 ML SYRINGE SC SCH (10:02)
[2017-04-24] MEDS: Multivitamin W/ Minerals 1 TAB PO SCH (10:02)
--- NOTE | 2017-04-24 12:17 | DIS ---
DATE OF ADMISSION: 04/19/2017 DATE OF DISCHARGE: 04/24/2017 PRIMARY CARE PHYSICIAN: [facility] call admission. DISCHARGE DISPOSITION: USP. PRIMARY DISCHARGE DIAGNOSES: 1. Acute on chronic hypoxic respiratory failure with hypoxia. 2. Bilateral lower extremity cellulitis. 3. Acute on chronic diastolic congestive heart failure. 4. Chronic obstructive pulmonary disease exacerbation. SECONDARY DISCHARGE DIAGNOSES: 1. Hypertension. 2. Anxiety. 3. Depression. 4. Glaucoma. 5. Hypothyroidism. 6. Normocytic-normochromic anemia. 7. Chronic obstructive pulmonary disease. 8. Interstitial lung disease. 9. Chronic diastolic heart failure. PRIMARY PROCEDURE/OPERATION: None. RADIOLOGICAL INVESTIGATION: Chest x-ray on admission showed no acute process. CT angiography showed nodularity in the right upper and lower lobe. Ultrasound was negative for any DVT. Echocardiograph y showed ejection fraction 55%-60%, diastolic dysfunction, moderate tricuspid regurgitation. SIGNIFICANT LABORATORY DATA: WBC 7.8, hemoglobin 10.8, platelets 202. INR 1.0. Sodium 135, potassi um 3.7, BUN 9, creatinine 0.65, calcium 8.5. Urinalysis normal. Blood culture was negative. Influe nza screen negative. DISCHARGE MEDICATIONS: Tylenol 650 mg q.6 hourly p.r.n., Xanax 0.25 mg p.o. q.8 hourly p.r.n., Celex a 20 mg p.o. daily, doxycycline 100 mg twice daily for 7 days, Pepcid 20 mg p.o. b.i.d., Lasix 20 mg p.o. daily, Mucinex 600 mg p.o. b.i.d., Levsin 0.125 mg sublingual a.c. and at bedtime p.r.n., DuoNeb q.6 hourly, Synthroid 75 mcg p.o. daily, Dulera 2 puffs inhalation b.i.d., multivitamin 1 tablet p.o . daily, Florastor 250 mg p.o. daily for 7 days, Travatan Z 1 drop each eye at bedtime, Nasacort nasa l spray daily. CONTRAINDICATIONS: None. CODE STATUS: DNR. INPATIENT CONSULTANTS: None. ALLERGIES: PENICILLIN. DISCHARGE PLAN: Post hospital, the patient is discharged to shelter home. Subsequently, the patient will follow up with primary care physician. HOSPITAL COURSE: An 86-year-old female with above-mentioned medical problem, who was admitted by me. Please see my HPI for further details. The patient was admitted on 04/19/2017 from half-way fo r increasing shortness of breath, increasing bilateral lower extremity edema and erythema. In the em ergency room, she was saturating at 80% on room air. She was having COPD flareup as well as congesti ve heart failure flareup with edema and elevated BNP. We did echocardiography and found with diastol ic dysfunction. The patient was treated with Lasix for diastolic heart failure and she was treated f or COPD exacerbation with steroid and DuoNeb therapy and Dulera. For her cellulitis in both lower ex tremities, we treated her with Rocephin and vancomycin. Initially, she was admitted to telemetry jie or. Subsequently, we transferred her to medical floor. The patient is requiring total assistance, a nd we are discharging her back to half-way. During this admission, we confirmed her code status DNR with patient's son. At this point, the patient's cellulitis is significantly improved, her edema completely resolved, and her COPD is under control and up to her baseline level. She has protein-calorie malnutrition and th at is why she needs nutritional support. PHYSICAL EXAMINATION: The patient is seen and examined at bedside today. VITAL SIGNS: Currently, temperature 98.6, pulse 91, respiratory rate 20, saturation 93% on 2 liters oxygen, blood pressure 150/72, weight 89 pounds. GENERAL: The patient is currently alert, awake, in no acute distress. HEAD: Normocephalic, atraumatic. LUNGS: Clear to auscultation without any rhonchi or rales. CARDIAC: S1, S2 regular without any murmur. ABDOMEN: Soft and benign. EXTREMITIES: No edema, no cellulitis. NEUROLOGIC: Nonfocal examination. Paper work for discharge done. Discharge medication reconciliation done. Total time spent on discharge day, 31 minutes.
[2017-04-24 16:35] VITALS: BP 147/69; TEMP 98.1
== END 2017-04-24 12:50 | DRG 291 ==
LOC: ERS 08:27 → 2NO 13:52 → T4-B 04-23 14:39
PROVIDERS: ADMIT Internal Medicine; ATTEND Internal Medicine
DX: I11.0 Hypertensive heart disease with heart failure (principal); J96.01 Acute respiratory failure with hypoxia; E44.0 Moderate protein-calorie malnutrition; L03.115 Cellulitis of right lower limb; I07.1 Rheumatic tricuspid insufficiency; J44.1 Chronic obstructive pulmonary disease with (acute) exacerbation; L03.116 Cellulitis of left lower limb; Z68.1 Body mass index [BMI] 19.9 or less, adult; I50.33 Acute on chronic diastolic (congestive) heart failure; F03.90 Unspecified dementia, unspecified severity, without behavioral disturbance, psychotic disturbance, mood disturbance, and anxiety; J84.10 Pulmonary fibrosis, unspecified; E03.9 Hypothyroidism, unspecified; H40.9 Unspecified glaucoma; D64.9 Anemia, unspecified; F32.9 Major depressive disorder, single episode, unspecified; F41.9 Anxiety disorder, unspecified; Z88.0 Allergy status to penicillin; Z66 Do not resuscitate
CPT/HCPCS: 36415; 36416; 51701; 71010; 71275; 80048; 80053; 80202; 81003; 82553; 83605; 83880; 84484; 85025; 85610; 85730; 87040; 87149; 93005; 93306; 93970; 94640; 94760; 96374; A4216; A4353; G8978-GP-CM; G8979-GP-CK; G8996-GN-CI; G8996-GN-CJ; G8997-GN-CI; J0696; J1650; J2405; J2920; J2930; J3370; J7050; J7620

== ENCOUNTER 2017-08-14 23:07 | Emergency (ER) | payer MEDICARE ==
[2017-08-14 23:43] LABS: #Basophils 0.1 thou/uL (0.0-0.2); #Eosinphils 0.2 thou/uL (0.0-0.7); #Monocytes 0.7 thou/uL (0.11-0.59); #Neutrophils 5.2 thou/uL (1.40-6.50); %Basophils 0.7 % (0.0-1.0); %Eosinophils 2.5 % (0.0-10.0); %Lymphocytes 24.4 % (21.0-51.0); %Monocytes 8.6 % (0.0-10.0); %Neutrophils 63.9 % (42.0-75.0); Hemoglobin 10.2 g/dL (12.0-16.0); Mean Corpuscular HGB CONC 31.9 g/dL (32.0-36.0); Mean Corpuscular Hemoglobin 29.4 pg (27.0-31.0); Mean Corpuscular Volume 92.2 fl (81.0-99.0); Mean Platelet Volume 6.2 fL (7.4-10.4); Platelet Count 326 thou/uL (130-400); RBC Distribution Width 12.8 % (11.5-14.5); Red Blood Cell (RBC) Count 3.48 mill/uL (4.20-5.40); White Blood Cell (WBC) Count 8.1 thou/uL (4.8-10.8)
[2017-08-15 00:03] LABS: ALT (SGPT) 7 U/L (8-55); AST (SGOT) 15 U/L (5-34); Alkaline Phosphatase 94 U/L (40-150); Anion Gap 10 mmol/L (10-20); BUN (Urea Nitrogen) 20 mg/dL (9.8-20.1); Bilirubin, Total 0.3 mg/dL (0.2-1.2); CK (CPK) 63 U/L (29-168); Calc. Creatinine Clearance 0 mL/min (70-130); Calcium 9.1 mg/dL (7.8-10.44); Carbon Dioxide 35 mmol/L (23-31); Chloride 99 mmol/L (98-107); Estimated GFR-MDRD 64; Globulin 3.1 g/dL (2.4-3.5); Glucose 98 mg/dL (83-110); Potassium 4.3 mmol/L (3.5-5.1); Protein, Total 7.1 g/dL (6.0-8.3); Sodium 140 mmol/L (136-145)
[2017-08-15 00:06] LABS: CKMB 2.7 ng/mL (0-6.6); Troponin I Less than 0.010 ng/mL (< 0.028)
--- NOTE | 2017-08-15 00:09 | RAD ---
SINGLE VIEW OF THE PELVIS: 08/14/17 COMPARISON: 04/04/13. HISTORY: Fall this evening from sitting in walker with pelvic pain. FINDINGS: A single view of the pelvis shows no evidence of acute fracture or dislocation. There are degenerativ e changes in the lumbar spine. Mild degenerative changes seen in both hips. IMPRESSION: No evidence of acute osseous abnormality. POS: [facility]
[2017-08-15] MEDS ORDERED: Adacel (T-DAP) 0.5 ML VIAL ONE (02:03)
--- NOTE | 2017-08-15 07:52 | RAD ---
FOUR VIEWS LEFT KNEE: DATE: 08/14/17. COMPARISON: None. HISTORY: Fall, trauma, pain. FINDINGS: Lateral examination demonstrates no knee joint effusion. There is enthesophyte formation at the inse rtion of the quadriceps tendon. The frontal and bilateral oblique views are limited in detail second luis miguel to portable technique and demonstrate no obvious fracture. Followup imaging is advised if sympto ms persist. There is degenerative subchondral sclerosis involving the medial and lateral compartment with associated mild joint space narrowing. IMPRESSION: No displaced fracture or evidence of dislocation. Limited osseous detail as detailed above. POS: [facility]
--- NOTE | 2017-08-15 08:09 | CT ---
PRELIMINARY REPORT/[facility]/EMERGENCY AFTER HOURS PROCEDURE: EXAM: CT Head Without Intravenous Contrast CLINICAL HISTORY: 86 years old, female; Injury or trauma; Fall; Initial encounter; Abrasion; Scalp; Patient HX: Er12; F all this evening from sitting in walker, hit head, C/O head pain and left knee pain, does not remembe r how she fell TECHNIQUE: Axial computed tomography images of the head/brain without intravenous contrast. COMPARISON: No relevant prior studies available. FINDINGS: Brain: Moderate white matter hypoattenuation suggestive of chronic small vessel ischemic demyelinatio n. No intracranial mass effect, hemorrhage or acute large territory infarct. Ventricles: Mild diffuse enlargement of the ventricles which may represent compensatory ex vacuo dist ention secondary to involution. Bones/joints: Unremarkable. No acute fracture. Soft tissues: Unremarkable. Sinuses: Unremarkable as visualized. No acute sinusitis. Mastoid air cells: Unremarkable as visualized. No mastoid effusion. IMPRESSION: 1. Mild diffuse enlargement of the ventricles which may represent compensatory ex vacuo distention se condary to involution. 2. Moderate white matter hypoattenuation suggestive of chronic small vessel ischemic demyelination. 3. No intracranial mass effect, hemorrhage or acute large territory infarct. Thank you for allowing us to participate in the care of your patient. Dictated and Authenticated by: Errol Collier MD 08/15/2017 12:27 AM Central Time ([place] & [place]) FINAL REPORT HEAD CT WITHOUT CONTRAST: DATE: 08/15/17. COMPARISON: 05/27/13. HISTORY: Fall, trauma, pain. FINDINGS: I agree with the preliminary [facility] report. The visualized paranasal sinuses and mastoid air cells ar e well aerated. There is no displaced calvarial fracture. There is moderate diffuse cerebral volume loss with associated prominence of the CSF-containing spaces. There is periventricular hypodensity suggesting small vessel disease. No intracranial hemorrhage, midline shift, or mass effect. IMPRESSION: Chronic findings as above. No intracranial hemorrhage seen. POS: [facility]
== END 2017-08-15 01:40 ==
LOC: ERS 23:07
DX: S80.212A Abrasion, left knee, initial encounter (principal); S00.01XA Abrasion of scalp, initial encounter; I10 Essential (primary) hypertension; M81.0 Age-related osteoporosis without current pathological fracture; F03.90 Unspecified dementia, unspecified severity, without behavioral disturbance, psychotic disturbance, mood disturbance, and anxiety; K21.9 Gastro-esophageal reflux disease without esophagitis; E03.9 Hypothyroidism, unspecified; F41.9 Anxiety disorder, unspecified; Z23 Encounter for immunization; W18.30XA Fall on same level, unspecified, initial encounter; Y92.129 Unspecified place in nursing home as the place of occurrence of the external cause
CPT/HCPCS: 36415; 70450; 72170; 80053; 82550; 82553; 83880; 84484; 85025; 90471; 90715; 93005

== ENCOUNTER 2017-11-21 06:25 | Inpatient (IN) | payer MEDICARE ==
[2017-11-21] MEDS ORDERED: Ondansetron HCl/PF 4 MG/2 ML Vial ONE (06:44)
[2017-11-21 06:46] LABS: #Basophils 0.1 thou/uL (0.0-0.2); #Eosinphils 0.3 thou/uL (0.0-0.7); #Monocytes 0.8 thou/uL (0.11-0.59); #Neutrophils 4.3 thou/uL (1.40-6.50); %Basophils 0.9 % (0.0-1.0); %Eosinophils 3.5 % (0.0-10.0); %Monocytes 10.1 % (0.0-10.0); %Neutrophils 58.5 % (42.0-75.0); Hemoglobin 11.2 g/dL (12.0-16.0); Mean Corpuscular HGB CONC 32.1 g/dL (32.0-36.0); Mean Corpuscular Hemoglobin 29.9 pg (27.0-31.0); Mean Corpuscular Volume 93.2 fL (78.0-98.0); Mean Platelet Volume 6.7 fL (7.4-10.4); Platelet Count 274 thou/uL (130-400); RBC Distribution Width 13.3 % (11.5-14.5); Red Blood Cell (RBC) Count 3.73 mill/uL (4.20-5.40); White Blood Cell (WBC) Count 7.4 thou/uL (4.8-10.8)
[2017-11-21] MEDS ORDERED: Naloxone HCl 2 mg/2 ml Syringe ONE (07:01)
[2017-11-21 07:02] LABS: ALT (SGPT) 10 U/L (8-55); AST (SGOT) 20 U/L (5-34); Albumin 4.2 g/dL (3.4-4.8); Alkaline Phosphatase 67 U/L (40-150); Anion Gap 13 mmol/L (10-20); BUN (Urea Nitrogen) 16 mg/dL (9.8-20.1); Bilirubin, Total 0.5 mg/dL (0.2-1.2); Calc. Creatinine Clearance 0 mL/min (70-130); Calcium 9.4 mg/dL (7.8-10.44); Carbon Dioxide 32 mmol/L (23-31); Chloride 97 mmol/L (98-107); Estimated GFR-MDRD 67; Globulin 3.2 g/dL (2.4-3.5); Glucose 97 mg/dL (83-110); Potassium 4.3 mmol/L (3.5-5.1); Protein, Total 7.4 g/dL (6.0-8.3); Sodium 138 mmol/L (136-145)
--- NOTE | 2017-11-21 08:20 | CT ---
CT BRAIN WITHOUT CONTRAST: Date: 11/21/17 HISTORY: Trauma. Fall. Injury to back of head. Headache. FINDINGS: Comparison made with exam of 08/15/17. Changes of cortical atrophy and chronic small vessel ischemic disease are again seen. The ventricular size is stable and the basilar cisterns are patent. No evidence of acute infarct, hemorrhage, midlin e shift, or abnormal extra-axial fluid collections are seen. The bony calvarium is intact. The visual ized paranasal sinuses and mastoid air cells are well aerated. IMPRESSION: No CT evidence of acute intracranial process. POS: [facility]
--- NOTE | 2017-11-21 08:51 | RAD ---
AP PELVIS: Date: 11/21/17 HISTORY: Fall. Right hip pain. FINDINGS/IMPRESSION: There is an intertrochanteric fracture involving the right femur. POS: [facility]
--- NOTE | 2017-11-21 08:52 | RAD ---
RIGHT FEMUR 2 VIEWS: Date: 11/21/17 HISTORY: Fall. Right hip pain. FINDINGS/IMPRESSION: There is an intertrochanteric fracture involving the right proximal femur. POS: [facility]
[2017-11-21 09:41] LABS: CKMB 5.3 ng/mL (0-6.6); Troponin I Less than 0.010 ng/mL (< 0.028)
[2017-11-21] MEDS ORDERED: CEFAZOLIN/Water 2 GM/20 ML SYRINGE SLOW IVP SCH (09:45)
[2017-11-21] MEDS ORDERED: traMADol HCl 50 MG TAB PO PRN (09:46)
[2017-11-21] MEDS ORDERED: Ondansetron HCl/PF 4 MG/2 ML Vial IVP PRN (09:46)
[2017-11-21] MEDS ORDERED: Dextrose 50% Abboject 50 ML SYRINGE SLOW IVP PRN (09:46)
[2017-11-21] MEDS ORDERED: Dextrose 5% in Water 1,000 ML IV PRN (09:46)
[2017-11-21] MEDS ORDERED: Ondansetron ODT 4 MG TAB PO PRN (09:46)
--- NOTE | 2017-11-21 10:25 | RAD ---
PORTABLE CHEST 1 VIEW: Date: 11/21/17 Time: 0924 hours HISTORY: Preoperative evaluation. FINDINGS: Comparison made with exam of 04/19/17. The heart is enlarged. The aorta is tortuous. The lungs are well expanded without lobar consolidation , pneumothoraces, pihlip pulmonary edema, or pleural effusions. Deformities of the humeral heads again noted bilaterally. IMPRESSION: No acute process. POS: [facility]
--- NOTE | 2017-11-21 10:32 | HP ---
DATE OF ADMISSION: 11/21/2017 ATTENDING PHYSICIAN: Dr. Alarcon. TRAUMA ACTIVATION: Not applicable. HISTORY OF PRESENT ILLNESS: This is an 87-year-old female with past medical history of Alzheimer's dementia that resides at the Memory Unit at [facility]. She was brought to the emergency room status post unwitnessed fall. She was evaluated and found to have an isolated right intertrochanteric hip fracture. Orthopedic Surgery was notified and Trauma Service was asked to admit. Upon my evaluation, the patient is alert and oriented to self and has a chief complaint of right hip pain. There is not currently any family at bedside. History obtained from records review given patient's underlying dementia. ALLERGIES: PENICILLINS. CHRONIC MEDICAL ILLNESSES: Include dementia, CHF, IPF, glaucoma, hypertension, GERD, anxiety, hypothyroidism and history of falls. HOME MEDICATIONS: Include Lasix 20 mg p.o. daily, multivitamin, Pepcid 20 mg p.o. daily, metolazone 2.5 mg Sunday and , loperamide 2 mg p.r.n. diarrhea, Mucinex p.r.n., Nasacort p.r.n., Xanax 0.25 mg q.8 hours p.r.n., Florastor p.o. daily, Celexa 20 mg p.o. daily, Synthroid 75 mcg p.o. daily and Travatan eyedrops daily. SURGICAL HISTORY: Unable to verify. SOCIAL HISTORY: Patient resides at [facility]. Unclear what her baseline ambulatory status is. REVIEW OF SYSTEMS: Unobtainable. FAMILY HISTORY: Unobtainable. PHYSICAL EXAMINATION: VITAL SIGNS: Most recent vital signs blood pressure 118/60, pulse 94, respiration 19, O2 sat 100% on 2-3 liters nasal cannula and temperature 98.0. GENERAL: Thin elderly appearing female in no acute distress, resting in bed. HEAD: Normocephalic. EYES: Pupils are PERRL. Extraocular movements are intact. NECK: Supple. Trachea is midline. CHEST: Atraumatic, nontender to palpation. Normal work of breathing, symmetric rise. LUNGS: Lung sounds are distant, but clear to auscultation bilaterally. CARDIOVASCULAR: Regular rate and rhythm, no obvious murmurs, rubs, or gallops. GASTROINTESTINAL: Abdomen is soft, nontender, nondistended. MUSCULOSKELETAL: Bilateral upper extremities within normal limits. Left lower extremity within normal limits. Right lower extremity with tenderness to palpation of the hip, and limited range of motion secondary to pain. She is neurovascularly intact to distal side of her injury. BACK: Exam reported as being within normal limits. NEUROLOGIC: Patient is oriented to self, no focal deficit is noted. LABORATORY DATA AND IMAGING DATA: WBC 7.4, hemoglobin 11.2, hematocrit 34.7, platelet count 274. Sodium 138, potassium 4.3, chloride 97, carbon dioxide 32, BUN 16, creatinine 0.81, glucose 97, calcium 9.4, AST and ALT within normal limits. Troponin less than 0.010. EKG sinus rhythm without evidence of STEMI. X-ray of the right femur was read as having a right intertrochanteric hip fracture. X-ray of the pelvis demonstrated the same. CT of the brain was negative for acute intracranial bleed or abnormality per radiology read. Chest x-ray official read is pending. Lungs are hyperinflated with coarse interstitial markings. There is no evidence of acute cardiopulmonary process noted. ASSESSMENT: 1. Status post unwitnessed fall. 2. Right intertrochanteric hip fracture. 3. Acute traumatic pain. 4. 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 5. History of congestive heart failure. 6. History of dementia. PLAN: The patient has been seen and evaluated concurrently with Dr. Alarcon. Orthopedic Surgery has seen and evaluated the patient. We are currently awaiting decision from family regarding operative intervention to the patient's injury. The patient will be kept n.p.o. for now with gentle IV fluid hydration. Perioperative pain management with p.o. and IV analgesics. Postoperative PT and OT. Per discussion with patient's family and review of records, she is a DNR and family wishes this to remain in place during her hospitalization. All questions were answered at the time of this dictation. ANNIA
[2017-11-21] MEDS: traMADol HCl 50 MG TAB PO SCH ×3 (11:24→22:46)
[2017-11-21] MEDS: Acetaminophen 500 MG TAB PO SCH ×3 (11:24→22:46)
[2017-11-21] MEDS: Sodium Chloride 0.9% 1,000 ML IV SCH ×2 (11:25→22:47)
[2017-11-21] MEDS: Ketorolac Tromethamine 30 MG/ML VIAL IVP SCH ×3 (11:31→23:58)
[2017-11-21] MEDS ORDERED: PHENYLEPHRINE-NS 100 MCG/ML 10 ML SYRINGE ONE (11:56)
[2017-11-21] MEDS ORDERED: Ketorolac Tromethamine 15 MG/ML VIAL IVP SCH (12:00)
[2017-11-21] MEDS ORDERED: Sodium Chloride 0.9% 100 ML ONE (14:28)
[2017-11-21] MEDS ORDERED: CEFAZOLIN 1 GM VIAL ONE (14:28)
[2017-11-21] MEDS ORDERED: Acetaminophen 750 MG in Premix Bag 1 BAG IVPB SCH (16:15)
[2017-11-21] MEDS ORDERED: Bupivacaine 0.75% W/DEXTROSE 8.25% 2 ML AMP ONE (16:51)
[2017-11-21] MEDS ORDERED: Lidocaine 2% 10 ML INJ ONE (16:51)
[2017-11-21] MEDS ORDERED: Fentanyl 100 MCG/2 ML VIAL ONE (17:30)
[2017-11-21] MEDS ORDERED: Phenylephrine HCL 10 MG/ML VIAL ONE (17:34)
[2017-11-21] MEDS ORDERED: Bupivacaine HCl 0.5%/Epinephrine 1:200,000/PF 30 ml Vial ONE (17:42)
--- NOTE | 2017-11-21 18:30 | RAD ---
RIGHT HIP: 11/21/17 Two views. Two fluoroscopic views taken in the OR during internal fixation procedure. INDICATIONS: Open reduction internal fixation right proximal femur. Right femur fracture. FINDINGS: Plate and compression screw transfix the right femoral neck. POS: [facility]
[2017-11-21] MEDS ORDERED: Famotidine 20 MG TAB PO SCH ×2 (21:00)
[2017-11-21] MEDS ORDERED: CEFAZOLIN 1 GM VIAL SLOW IVP SCH (22:00)
[2017-11-21] MEDS: CEFAZOLIN 1 GM in Sodium Chloride 0.9% 100 ML IVPB SCH (22:46)
[2017-11-22] MEDS: Acetaminophen 500 MG TAB PO SCH ×5 (03:44→21:45)
[2017-11-22] MEDS: traMADol HCl 50 MG TAB PO SCH ×4 (03:44→21:54)
[2017-11-22 04:14] LABS: Bilirubin Negative (Negative); Blood, Urine Negative (Negative); Clarity CLEAR (Clear); Glucose, Urine (Dipstick) Negative (Negative); Leukocyte Negative (Negative); Nitrite Negative (Negative); Protein, Urine (Dipstick) Negative (Neg-Trace); Specific Gravity, Urine 1.024 (1.002-1.036); Urobilinogen 0.2 mg/dL (0.2-1.0); pH, Urine 5.5 (5.0-9.0)
[2017-11-22 05:35] LABS: #Eosinphils 0.1 thou/uL (0.0-0.7); #Lymphocytes 0.9 thou/uL (1.20-3.40); #Monocytes 0.8 thou/uL (0.11-0.59); #Neutrophils 7.7 thou/uL (1.40-6.50); %Basophils 0.5 % (0.0-1.0); %Eosinophils 1.5 % (0.0-10.0); %Lymphocytes 9.8 % (21.0-51.0); %Monocytes 8.3 % (0.0-10.0); %Neutrophils 79.9 % (42.0-75.0); Hemoglobin 9.1 g/dL (12.0-16.0); Mean Corpuscular HGB CONC 32.3 g/dL (32.0-36.0); Mean Corpuscular Hemoglobin 30.5 pg (27.0-31.0); Mean Corpuscular Volume 94.6 fL (78.0-98.0); Mean Platelet Volume 6.9 fL (7.4-10.4); Platelet Count 182 thou/uL (130-400); RBC Distribution Width 13.2 % (11.5-14.5); Red Blood Cell (RBC) Count 2.98 mill/uL (4.20-5.40); White Blood Cell (WBC) Count 9.7 thou/uL (4.8-10.8)
[2017-11-22 05:56] LABS: Anion Gap 9 mmol/L (10-20); BUN (Urea Nitrogen) 16 mg/dL (9.8-20.1); Calc. Creatinine Clearance 30 mL/min (70-130); Calcium 8.2 mg/dL (7.8-10.44); Carbon Dioxide 31 mmol/L (23-31); Chloride 102 mmol/L (98-107); Estimated GFR-MDRD 69; Glucose 78 mg/dL (83-110); Magnesium 1.8 mg/dL (1.6-2.6); Phosphorus 3.6 mg/dL (2.3-4.7); Potassium 4.5 mmol/L (3.5-5.1); Sodium 137 mmol/L (136-145)
[2017-11-22] MEDS: Ketorolac Tromethamine 30 MG/ML VIAL IVP SCH ×4 (06:20→23:03)
[2017-11-22] MEDS: CEFAZOLIN 1 GM in Sodium Chloride 0.9% 100 ML IVPB SCH ×2 (06:21→14:29)
[2017-11-22] MEDS ORDERED: Fluticasone Propionate Nasal Spray 16 gm Bottle NASAL PRN (11:27)
[2017-11-22] MEDS ORDERED: Hyoscyamine Sulfate SL 0.125 mg Tablet SL PRN (11:27)
[2017-11-22] MEDS ORDERED: guaiFENesin ER 600 MG TAB PO PRN (11:27)
[2017-11-22] MEDS: Sodium Chloride 0.9% 1,000 ML IV SCH ×2 (11:40→17:58)
--- NOTE | 2017-11-22 13:00 | OP ---
DATE OF PROCEDURE: 11/21/2017 PREOPERATIVE DIAGNOSIS: Right intertrochanteric femur fracture. POSTOPERATIVE DIAGNOSIS: Right intertrochanteric femur fracture. SURGICAL PROCEDURE: Open reduction and internal fixation of right intertrochanteric femur fracture. ANESTHESIA: Spinal. SURGEON: Gerardo Infante M.D. DIRECTOR OF EDUCATION AND TRAINING: Prince Benitez PA-C. ESTIMATED BLOOD LOSS: 100 mL IMPLANTS: Synthes DHS 3-hole 130 degree sideplate with 70 mm hip screw. COMPLICATIONS: None. DRAINS: None. SPECIMEN: None. OUTCOME: Satisfactory. INDICATIONS: The patient is an 87-year-old lady status post fall from a chair, sustaining a right in tertrochanteric femur fracture. The patient is experiencing quite a bit of pain. She is nonambulato ry; however, after discussion with patient and her family including risks and benefits, we decided to proceed with stabilization to provide some degree of pain relief and to help facilitate her bed to c hair transfers. Informed consent has been obtained. I believe all questions have been answered. DESCRIPTION OF PROCEDURE: The patient was brought to the operating room and a timeout performed foll owed by induction of general anesthesia. Next, patient was positioned on the fracture table with the injured extremity held in longitudinal traction and the unaffected leg scissored such that AP and la teral C-arm images of the hip could be obtained. Next, a sterile prep and drape was performed of the right lateral thigh. At this point, a small skin incision was made just distal to the greater troch anter. After skin was sharply incised, dissection was carried down to the underlying tensor fascia. This was incised in line with the skin incision revealing the underlying fascia of the vastus latera lis. This too was incised in line with the skin incision and the muscle belly reflected anteriorly g aining access to the lateral cortex of the femur. Next, a threaded guidewire was passed using 130 de gree jig through the lateral cortex of the femur up into the femoral head and neck in a near center-c enter position. Once appropriately positioned, the step reamer was utilized to ream over this guidew tabitha. Unfortunately, there was found to be a threaded guidewire already in the step reamer. When thi s was removed, it was apparent that the reamer although had been sent through the sterilizer and had gone through the autoclave and was not fully cleaned and there were some bony fragments within this r eamer. At this point, it was felt that the device was sterilized, although not completely cleaned an d giving another device was not readily available and given the fact this patient was quite ill and s peed is of the essence, we did proceed with utilization of the step reamer. Reaming was performed an d then the 70 mm hip screw and sideplate was introduced in standard fashion. This was then held in p lace with cortical screws and then AP and lateral C-arm images showed near anatomic alignment of the fracture and appropriate position of the hardware. The wound was then irrigated with bulb syringe an d closed in layers with 0 Vicryl for the tensor fascia, followed by 2-0 Vicryl and waleska for the sk in. Xeroform gauze tape dressing was applied to the thigh and then patient was transferred to [facility] room in stable condition. There were no complications. Patient tolerated the procedure well.
--- NOTE | 2017-11-22 19:18 | PRG ---
DATE OF SERVICE: 11/22/2017 Of note, this is a late dictation. Patient was seen and evaluated approximately 9:00 a.m. this shabb[facility] [place]. SUBJECTIVE: This is an 87-year-old female status post unwitnessed fall from bed resulting in a right hip fracture. The patient is postop day #1 status post hip fracture repair. Upon our evaluation th is morning, the patient states that her pain is controlled and she vocalizes no complaint. She was h aving some difficulty eating her breakfast independently. OBJECTIVE: VITAL SIGNS: Temperature 98.4, pulse 100, respiration 18, O2 sat 92% on 2 liters nasal cannula, and blood pressure 127/60. GENERAL: Elderly, frail-appearing female in no acute distress, sitting in bed. HEAD: Normocephalic, atraumatic. PULMONARY: Normal work of breathing. Symmetric rise. CARDIOVASCULAR: Regular rate and rhythm. GASTROINTESTINAL: Abdomen is soft, nontender and nondistended. MUSCULOSKELETAL: Moves all extremities x4. NEUROLOGIC: No focal deficit is noted. LABORATORY DATA: WBC 9.7, hemoglobin 9.1, hematocrit 28.2, platelet count 182. Sodium 137, potassiu m 4.5, chloride 102, carbon dioxide 31, BUN 16, creatinine 0.79, glucose 78. BNP 445. IMAGING DATA: No new radiographic findings. ASSESSMENT: 1. Status post unwitnessed fall. 2. Right hip fracture. 3. Acute traumatic pain. 4. History of idiopathic pulmonary fibrosis. 5. History of congestive heart failure. 6. Dementia. 7. Hypoxemia, multifactorial. PLAN: Initiate postoperative PT and OT. Continue incentive spirometry and pulmonary toileting. We will order feeder for patient and add nutritional supplement. The patient is a resident at [facility]. We will discuss eventual disposition with case management. Pain management as ordered. We will resume home medication. The patient was seen and evaluated with Dr. Alarcon.
[2017-11-22] MEDS: Famotidine 20 MG TAB PO SCH ×2 (21:42→21:45)
[2017-11-22] MEDS: Latanoprost 0.005% Ophth Soln 2.5 ml Bottle EA EYE SCH (21:42)
[2017-11-23] MEDS: Acetaminophen 500 MG TAB PO SCH ×4 (05:08→20:51)
[2017-11-23] MEDS: traMADol HCl 50 MG TAB PO SCH ×4 (05:09→20:51)
[2017-11-23] MEDS: Ketorolac Tromethamine 30 MG/ML VIAL IVP SCH ×3 (05:55→17:09)
[2017-11-23] MEDS: Levothyroxine Sodium 75 MCG TAB PO SCH (05:56)
[2017-11-23] MEDS: Sodium Chloride 0.9% 1,000 ML IV SCH (06:52)
[2017-11-23] MEDS: Saccharomyces boulardii 250 MG CAP PO SCH (08:19)
[2017-11-23] MEDS: Citalopram 20 MG TAB PO SCH (08:19)
[2017-11-23] MEDS: Furosemide 20 MG TAB PO SCH ×2 (08:19→10:08)
[2017-11-23] MEDS ORDERED: diphenhydrAMINE 50 MG/ML VIAL ONE (08:57)
[2017-11-23 09:43] LABS: #Lymphocytes 0.9 thou/uL (1.20-3.40); #Monocytes 0.7 thou/uL (0.11-0.59); #Neutrophils 9.7 thou/uL (1.40-6.50); %Basophils 0.4 % (0.0-1.0); %Eosinophils 0.2 % (0.0-10.0); %Lymphocytes 7.9 % (21.0-51.0); %Monocytes 5.7 % (0.0-10.0); %Neutrophils 85.9 % (42.0-75.0); Hemoglobin 8.2 g/dL (12.0-16.0); Mean Corpuscular HGB CONC 31.2 g/dL (32.0-36.0); Mean Corpuscular Hemoglobin 29.9 pg (27.0-31.0); Mean Corpuscular Volume 96.1 fL (78.0-98.0); Mean Platelet Volume 7.6 fL (7.4-10.4); Platelet Count 169 thou/uL (130-400); RBC Distribution Width 13.1 % (11.5-14.5); Red Blood Cell (RBC) Count 2.74 mill/uL (4.20-5.40); White Blood Cell (WBC) Count 11.3 thou/uL (4.8-10.8)
[2017-11-23 10:10] VITALS: BMI 17.2
[2017-11-23 10:10] LABS: Anion Gap 12 mmol/L (10-20); BUN (Urea Nitrogen) 29 mg/dL (9.8-20.1); Calc. Creatinine Clearance 22 mL/min (70-130); Carbon Dioxide 27 mmol/L (23-31); Chloride 104 mmol/L (98-107); Estimated GFR-MDRD 48; Glucose 109 mg/dL (83-110); Magnesium 1.8 mg/dL (1.6-2.6); Phosphorus 3.3 mg/dL (2.3-4.7); Sodium 138 mmol/L (136-145)
[2017-11-23] MEDS ORDERED: Furosemide 20 MG/2 ML VIAL SLOW IVP SCH (10:15)
--- NOTE | 2017-11-23 13:35 | PQF ---
CLINICAL DOCUMENTATION IMPROVEMENT CLARIFICATION FORM: ICD-10 Updated PLEASE DO AN ADDENDUM TO THE PROGRESS NOTE WITH ANY DOCUMENTATION UPDATES OR ADDITIONS AND CARRY THROUGH TO DC SUMMARY. THANK YOU. Date: ATTN: DANAY SOW/ DANAY PATEL Please exercise your independent, professional judgment in responding to the clarification form. Clinical indicators are provided on the bottom of this form for your review. Please check appropriate box(s): [ X ] Protein Calorie Malnutrition: [ ] Mild [ X] Moderate [ ] Underweight without malnutrition [ ] Cachexia [ ] Other diagnosis [ ] Unable to determine CLINICAL INDICATORS - SIGNS / SYMPTOMS / LABS BMI: 17.2 NUTRITION ASSESSMENT 11/23: TRIGGERED FOR LOW BMI. NOT EATING MUCH PER NURSE (25 % OF LAST 3 MEALS; POOR APPETITE; NEEDS ASSISTANCE W/MEAL SETUP AND FEEDING PHYSICAL THERAPY ASSESSMENT 11/22: 2+ EDEMA TO B ANKLES; REQUIRES MAX ASSIST FOR ALL ADL'S; -4 UPPER BODY STRENGTH RISK FACTORS: ALZHEIMER'S DEMENTIA POOR APPETITE NEEDS ASSISTANCE W/MEALS TREATMENT: NUTRITION ASSESSMENT NUTRITIONAL SUPPLEMENT (ENSURE ENLIVE TID) Moderate Malnutrition (in chronic illness) Energy Intake: <75% of estimated energy requirement for >1 month Weight Loss: 5%/1 month; 7.5%/3 months; 10%/6 months; 20%/1 year Other: mild body fat loss; mild muscle mass loss; mild fluid accumulation Severe Malnutrition (in chronic illness) Energy Intake: <75% of estimated energy requirement for >1 month Weight Loss: >5%/1 month; >7.5%/3 months; >10%/6 months; >20%/1 year Other: severe body fat loss; severe muscle mass loss; severe fluid accumulation; measurably reduced channel opener strength THANK YOU! Lisette (This form is maintained as a part of the permanent medical record) 2014 [employer]. All Rights Reserved Lisette Lira RN, BSN [email or web address] Office: [phone] [facility]
[2017-11-23] MEDS ORDERED: Furosemide 40 MG/4 ML VIAL SLOW IVP SCH ×2 (14:00→17:00)
--- NOTE | 2017-11-23 14:06 | PRG ---
DATE OF SERVICE: 11/23/2017 Ms. Tomlinson is an 87-year-old woman who is postoperative day #2, status post open reduction internal fixation of right intertrochanteric femur fracture. The patient remains confused at baseline, but interactive, moves all extremities and follows commands . She has had a few episodes of sudden desaturation of oxygen this morning. She denies any dyspnea, syncope or chest pain. PHYSICAL EXAMINATION: VITAL SIGNS: This morning includes blood pressure 105/67, pulse is 101, respiratory rate 16, tempera ture 97.3 degrees Fahrenheit. Oxygen saturation is 90% on 2 liters by nasal cannula oxygen. HEENT: Reveals normocephalic and atraumatic. Pupils are equal, round, reactive to light and accommo dation. She has no jugular venous distention noted. HEART: Reveals regular rate with mild sinus tachycardia. No murmurs or gallops auscultated. LUNGS: Reveals bibasilar rhonchi with few expiratory wheezes. Breathing is otherwise regular and un labored. ABDOMEN: Soft, nontender, nondistended. EXTREMITIES: Reveals 2+ radial and pedal pulses bilaterally. No ankle edema is present. NEUROLOGIC: Reveals no focal deficits present. The patient is, however, slightly confused at [facility] with history of senile dementia of Alzheimer's type. LABORATORY DATA: Today includes a CBC with 11,300 white blood cells, hemoglobin and hematocrit noted at 8.2 and 26.4 respectively. Platelet count is 169,000. Metabolic profile: Sodium 138, potassium is 5.0, chloride is 104, bicarbonate is 27, BUN 29, creatinine is 1.08, glucose is 109, magnesium 1. 8, phosphorus is 3.3. BNP is elevated today at 1145. This is in contrast from 2 days previously wit h a BNP of 445. IMPRESSION: 1. Postoperative day #2, status post open reduction and internal fixation of an intertrochanteric fe mur fracture. 2. Acute hypoxemia secondary to acute congestive heart failure exacerbation. PLAN: 1. We will saline lock at this time. 2. We will initiate diuretic therapy and provide optimum pulmonary toilet. 3. Continue with physical and occupational therapy. 4. We will monitor urinary output for response due to diuretics and monitor electrolytes and correct as indicated.
--- NOTE | 2017-11-23 17:08 | EKG ---
Test Reason : HIGH HR Blood Pressure : / mmHG Vent. Rate : 091 BPM Atrial Rate : 091 BPM P-R Int : 146 ms QRS Dur : 066 ms QT Int : 358 ms P-R-T Axes : 077 021 003 degrees QTc Int : 440 ms Normal sinus rhythm Normal ECG When compared with ECG of 21-NOV-2017 09:06, (Unconfirmed) Premature supraventricular complexes are no longer Present Nonspecific T wave abnormality now evident in Inferior leads Confirmed by DR. Guilherme WHITE ([id number]) on 11/23/2017 5:08:26 PM Referred By: LUCIA Confirmed By:DR. Guilherme WHITE
[2017-11-23 18:13] LABS: CO2 Tension 52.9 mmHg (35.0-45.0); O2 Tension (PaO2) 242.5 mmHg (> 60.0); pH, Arterial 7.33 (7.35-7.45)
[2017-11-23 18:14] LABS: Base Excess (BEa) 0.6 mEq/L (-2.0 to +3.0); Hemoglobin (Hb) 8.9 g/dL (12.0-16.0)
[2017-11-23 18:15] LABS: ALV-art Gradient 404.375 (0-20); Calcium, Ionized 1.1 mmol/L (1.12-1.30); Puncture Site RBA
[2017-11-23 20:43] LABS: Magnesium 1.8 mg/dL (1.6-2.6); Phosphorus 2.5 mg/dL (2.3-4.7)
[2017-11-23] MEDS: Famotidine 20 MG TAB PO SCH (20:50)
[2017-11-23] MEDS: Latanoprost 0.005% Ophth Soln 2.5 ml Bottle EA EYE SCH (20:51)
[2017-11-23 21:00] LABS: Anion Gap 15 mmol/L (10-20); BUN (Urea Nitrogen) 33 mg/dL (9.8-20.1); Calc. Creatinine Clearance 21 mL/min (70-130); Calcium 8.2 mg/dL (7.8-10.44); Carbon Dioxide 26 mmol/L (23-31); Chloride 100 mmol/L (98-107); Estimated GFR-MDRD 45; Glucose 102 mg/dL (83-110); Potassium 4.2 mmol/L (3.5-5.1); Sodium 137 mmol/L (136-145)
[2017-11-24] MEDS: Ketorolac Tromethamine 30 MG/ML VIAL IVP SCH ×2 (01:20→06:18)
[2017-11-24] MEDS: Acetaminophen 500 MG TAB PO SCH ×4 (04:44→21:17)
[2017-11-24] MEDS: traMADol HCl 50 MG TAB PO SCH ×4 (04:44→21:16)
[2017-11-24 05:56] LABS: Anion Gap 13 mmol/L (10-20); BUN (Urea Nitrogen) 36 mg/dL (9.8-20.1); Calc. Creatinine Clearance 18 mL/min (70-130); Carbon Dioxide 28 mmol/L (23-31); Chloride 99 mmol/L (98-107); Estimated GFR-MDRD 38; Glucose 110 mg/dL (83-110); Magnesium 1.8 mg/dL (1.6-2.6); Phosphorus 3.2 mg/dL (2.3-4.7); Potassium 4.1 mmol/L (3.5-5.1); Sodium 136 mmol/L (136-145)
[2017-11-24] MEDS: Levothyroxine Sodium 75 MCG TAB PO SCH (06:19)
[2017-11-24] MEDS: Furosemide 20 MG TAB PO SCH (08:57)
[2017-11-24] MEDS: Citalopram 20 MG TAB PO SCH (08:58)
[2017-11-24] MEDS: Saccharomyces boulardii 250 MG CAP PO SCH (08:58)
[2017-11-24] MEDS ORDERED: Magnesium Sulfate 2 GM in Sodium Chloride 0.9% 100 ML IVPB SCH (10:30)
--- NOTE | 2017-11-24 11:41 | PRG ---
DATE OF SERVICE: 11/24/2017 SUBJECTIVE: This is an 87-year-old female status post unwitnessed fall from bed. The patient is a [facility] resident at [place]. She sustained a right femur fracture and is now postop day #3 . This morning, she is alert and interactive and vocalized no complaints. OBJECTIVE: VITAL SIGNS: Temperature 97.9, pulse 98, respiration 16-24, O2 sat 95%-98% on 3 liters nasal cannula , blood pressure 121/65. GENERAL: Elderly appearing female, frail, no acute distress, resting in bed, eating breakfast. PULMONARY: Normal work of breathing. Symmetric rise. LUNGS: Clear to auscultation bilaterally. CARDIOVASCULAR: Regular rate and rhythm. No obvious murmurs, rubs or gallops. GASTROINTESTINAL: Abdomen is soft, nontender and nondistended. MUSCULOSKELETAL: Moves all extremities x4. NEUROLOGIC: No focal deficit is noted. LABORATORY DATA: Sodium 136, potassium 4.1, chloride 99, carbon dioxide 28, BUN 36, creatinine 1.32, glucose 110, phosphorus 3.2 and magnesium 1.8. ASSESSMENT: 1. Status post fall. 2. Postop day #3 status post open and reduction internal fixation of right femur fracture. 3. Hypoxic respiratory failure secondary to history of IPF plus or minus acute congestive heart fail ure exacerbation. 4. History of dementia. 5. Acute kidney injury. PLAN: Patient was diuresed yesterday given elevated BNP and hypoxemia. Hold Lasix at this time. In itiate Solu-Medrol. Every 6-hour nebulizer treatments. Wean O2 to a goal of 92%-95%. Continue PT a nd OT. Initiate pharmacologic deep venous thrombosis prophylaxis. Case management has seen and eval uated the patient and patient has been accepted back to [place], but needs her three midnights hosp ital stay. Hold NSAIDs given SHIRA. Encourage pulmonary toileting and mobility. A.m. labs. Replete abnormal electrolytes. The patient was discussed with Dr. Alarcon.
--- NOTE | 2017-11-24 14:23 | EKG ---
Test Reason : Blood Pressure : / mmHG Vent. Rate : 093 BPM Atrial Rate : 093 BPM P-R Int : 146 ms QRS Dur : 068 ms QT Int : 366 ms P-R-T Axes : 071 020 052 degrees QTc Int : 455 ms Sinus rhythm with Premature supraventricular complexes Possible Left atrial enlargement Borderline ECG Confirmed by BEN DAVIS ([id number]), assignment editor GLORIA BENNETT ([id number]) on 11/24/2017 2:23:17 PM Referred By: Confirmed By:BEN DAVIS
[2017-11-24] MEDS: Heparin 5,000 UNITS/ML VIAL SC SCH ×2 (15:57→21:19)
[2017-11-24] MEDS: Famotidine 20 MG TAB PO SCH (21:16)
[2017-11-24] MEDS: Latanoprost 0.005% Ophth Soln 2.5 ml Bottle EA EYE SCH (22:16)
[2017-11-25] MEDS: Acetaminophen 500 MG TAB PO SCH ×4 (04:22→21:15)
[2017-11-25] MEDS: traMADol HCl 50 MG TAB PO SCH ×4 (04:22→21:15)
[2017-11-25] MEDS: Levothyroxine Sodium 75 MCG TAB PO SCH (05:48)
[2017-11-25 06:12] LABS: Anion Gap 13 mmol/L (10-20); BUN (Urea Nitrogen) 40 mg/dL (9.8-20.1); Calc. Creatinine Clearance 25 mL/min (70-130); Carbon Dioxide 27 mmol/L (23-31); Chloride 100 mmol/L (98-107); Estimated GFR-MDRD 55; Potassium 5.2 mmol/L (3.5-5.1); Sodium 135 mmol/L (136-145)
[2017-11-25 06:13] LABS: Calcium 8.4 mg/dL (7.8-10.44); Glucose 125 mg/dL (83-110); Magnesium 2.8 mg/dL (1.6-2.6); Phosphorus 3.3 mg/dL (2.3-4.7)
[2017-11-25] MEDS: Saccharomyces boulardii 250 MG CAP PO SCH (09:09)
[2017-11-25] MEDS: Citalopram 20 MG TAB PO SCH (09:10)
[2017-11-25] MEDS: Heparin 5,000 UNITS/ML VIAL SC SCH ×3 (09:12→21:14)
[2017-11-25] MEDS ORDERED: methylPREDNISolone 4 mg Tablet PO SCH (12:00)
[2017-11-25] MEDS: methylPREDNISolone 4 mg Tablet PO SCH ×3 (12:36→21:14)
[2017-11-25] MEDS ORDERED: ALPRAZolam 0.25 MG TAB PO PRN (13:23)
[2017-11-25] MEDS: Famotidine 20 MG TAB PO SCH (21:15)
[2017-11-25] MEDS: Latanoprost 0.005% Ophth Soln 2.5 ml Bottle EA EYE SCH (23:14)
--- NOTE | 2017-11-26 00:13 | PRG ---
DATE OF SERVICE: 11/25/2017 SUBJECTIVE: The patient is status post fall. This was unwitnessed at her facility at [place]. Arlene ott sustained a right femur fracture which she is now postop day #4. She tolerated this procedure well . She has been currently on the surgical floor. This morning, she has no complaints. By report, arlene ott had a good night. She remains at her baseline mentally as far as some confusion and repetitiveness . Otherwise, she states her pain is controlled and she has begun working with physical and occupatio nal therapy. Per nursing report, the patient is due to be transferred to the skilled facility at [facility] within the next day or two. OBJECTIVE: VITAL SIGNS: Temperature is 97.9, heart rate 96, blood pressure 127/66, respirations 16, oxygen satu ration is 95% on 2 liters via nasal cannula. GENERAL: The patient is resting comfortably in bed. She is awake. She is responding appropriately to verbal stimuli. She is able to answer simple questions albeit she is repetitive and asking some q uestions. HEENT: Unremarkable. LUNGS: Clear to auscultation with good inspiratory and expiratory effort. HEART: Has regular rate and rhythm. ABDOMEN: Soft, flat, nontender with active bowel sounds. EXTREMITIES: Neurovascularly intact x4. Postop dressing is clean, dry, and intact. LABORATORY DATA: Sodium 135, potassium 5.2, chloride 100, CO2 27, BUN 40, creatinine 0.95, glucose 1 25, magnesium 2.8 and phosphorus 3.3. ASSESSMENT AND PLAN: 1. Status post fall. 2. Status post open reduction and internal fixation of right femur fracture. 3. History of dementia. 4. Acute kidney injury, resolving. Plan will be to continue supportive care, physical and occupational therapy. Resume her home diureti and await placement decision.
[2017-11-26] MEDS: traMADol HCl 50 MG TAB PO SCH ×2 (03:49→10:08)
[2017-11-26] MEDS: Acetaminophen 500 MG TAB PO SCH ×2 (03:49→10:08)
[2017-11-26] MEDS: Levothyroxine Sodium 75 MCG TAB PO SCH ×2 (06:11→06:15)
[2017-11-26 07:53] VITALS: BP 149/73; TEMP 98.1
[2017-11-26] MEDS ORDERED: methylPREDNISolone 4 mg Tablet PO SCH ×2 (08:00→21:00)
--- NOTE | 2017-11-26 08:26 | PQF ---
CLINICAL DOCUMENTATION IMPROVEMENT CLARIFICATION FORM: ICD-10 Updated PLEASE DO AN ADDENDUM TO THE PROGRESS NOTE WITH ANY DOCUMENTATION UPDATES OR ADDITIONS AND CARRY THROUGH TO DC SUMMARY. THANK YOU. DATE: 11/26 ATTN: DR. DOROTHEA SAXENA Please exercise your independent, professional judgment in responding to the clarification form. Clinical indicators are provided on the bottom of this form for your review. Please check appropriate box(s): ACUTE CONGESTIVE HEART FAILURE EXACERBATION TYPE: [ x] Systolic / HFrEF [ ] Diastolic / HFpEF [ ] Combined Systolic / Diastolic [ ] Other diagnosis [ ] Unable to determine In addition, please specify: Present on Admission (POA): [ x ] Yes [ ] No [ ] Unable to determine For continuity of documentation, please document condition throughout progress notes and discharge summary. Thank You. CLINICAL INDICATORS - SIGNS / SYMPTOMS / LABS PHYSICIAN PN 11/23: LABORATORY DATA: BNP IS ELEVATED TODAY AT 1145. THIS IS IN CONTRAST FROM 2 DAYS PREVIOUSLY W/A BNP OF 445 IMPRESSION: 2) ACUTE HYPOXEMIA 2/2 TO ACUTE CONGESTIVE HEART FAILURE EXACERBATION PA PN 11/24: ASSESSMENT: 3) HYPOXIC RESPIRATORY FAILURE 2/2 TO HX OF IPF PLUS OR MINUS ACUTE CHF EXACERBATION BNP: 445 (11/22) 1145 - 1220 (11/23) RISKS: HX OF CHF ADVANCED AGE (87) TREATMENTS: IV LASIX (3 ONE TIME DOSES 11/23) SUPPLEMENTAL OXYGEN THANK YOU! Lisette (This form is maintained as a part of the permanent medical record) 2014 [employer]. All Rights Reserved Lisette Lira RN, BSN [email or web address] Office: [phone] [facility]
[2017-11-26 08:52] LABS: Anion Gap 14 mmol/L (10-20); BUN (Urea Nitrogen) 58 mg/dL (9.8-20.1); Calc. Creatinine Clearance 24 mL/min (70-130); Calcium 8.3 mg/dL (7.8-10.44); Carbon Dioxide 30 mmol/L (23-31); Chloride 98 mmol/L (98-107); Estimated GFR-MDRD 53; Glucose 102 mg/dL (83-110); Hemoglobin 8.3 g/dL (12.0-16.0); Magnesium 2.7 mg/dL (1.6-2.6); Mean Corpuscular HGB CONC 31.8 g/dL (32.0-36.0); Mean Corpuscular Hemoglobin 30.2 pg (27.0-31.0); Mean Corpuscular Volume 94.7 fL (78.0-98.0); Mean Platelet Volume 7.6 fL (7.4-10.4); Platelet Count 206 thou/uL (130-400); Potassium 4.6 mmol/L (3.5-5.1); RBC Distribution Width 13.8 % (11.5-14.5); Red Blood Cell (RBC) Count 2.77 mill/uL (4.20-5.40); Sodium 137 mmol/L (136-145); White Blood Cell (WBC) Count 13.6 thou/uL (4.8-10.8)
[2017-11-26] MEDS ORDERED: Metolazone 2.5 MG TAB PO SCH (09:00)
[2017-11-26] MEDS ORDERED: Senokot S 8.6-50 MG TAB PO SCH (09:00)
[2017-11-26] MEDS: Saccharomyces boulardii 250 MG CAP PO SCH (09:00)
[2017-11-26] MEDS ORDERED: Polyethylene Glycol 3350 17 GM Packet PO SCH (09:00)
[2017-11-26] MEDS: Heparin 5,000 UNITS/ML VIAL SC SCH (09:01)
[2017-11-26] MEDS: Citalopram 20 MG TAB PO SCH (09:01)
[2017-11-26 09:17] LABS: Band 4 % (5-11); Hypochromia SLIGHT = 6-15 cells (100X) (0-5/hpf); Lymphocytes 9 % (21-51); MDiff Complete? YES; Monocytes 1 % (0-10); Neutrophil 86 % (42-75); Polychromasia MODERATE = 3-4 cells (100X) (0-2/hpf)
[2017-11-26] MEDS: Furosemide 20 MG TAB PO SCH (10:07)
--- NOTE | 2017-11-27 02:33 | DIS ---
DATE OF ADMISSION: 11/21/2017 DATE OF DISCHARGE: 11/26/2017 ADMISSION DIAGNOSES: 1. Status post unwitnessed fall. 2. Right intertrochanteric hip fracture. 3. Acute traumatic pain. 4. History of idiopathic pulmonary fibrosis, on no home O2. 5. History of congestive heart failure. 6. History of dementia. CONSULTATIONS: Orthopedics. PROCEDURES: Open reduction and internal fixation of right intertrochanteric femur fracture. SUMMARY: The patient is an 87-year-old female, who has a past medical history of Alzheimer's dementi a and resides in the Memory Unit of [facility]. She was brought to the emergency department after having an unwitnessed fall. She underwent evaluation and examination and was found to have an isolated right intertrochanteric hip fracture, in which she underwent the above procedure and she shivani erated this procedure well. At the time of discharge, she required oxygen at 2 liters via nasal michelle zaki. Otherwise, she had started working with physical and occupational therapy. Her pain was contro lled. She was tolerating a diet. She will follow up with Dr. Infante in 2 weeks or sooner as brigid do. She will also follow up with her primary care provider in the next 5-7 days or sooner as needed. She may follow up with the trauma clinic as needed also.
[2017-11-27] MEDS ORDERED: methylPREDNISolone 4 mg Tablet PO SCH (08:00)
[2017-11-28] MEDS ORDERED: methylPREDNISolone 4 mg Tablet PO SCH (08:00)
[2017-11-29] MEDS ORDERED: methylPREDNISolone 4 mg Tablet PO SCH (08:00)
[2017-11-30] MEDS ORDERED: methylPREDNISolone 4 mg Tablet PO SCH (08:00)
== END 2017-11-26 10:34 | DRG 480 ==
LOC: ERS 06:25 → SURG A 10:29
PROVIDERS: ADMIT Specialist; ATTEND Specialist
PROC: 0QS604Z Reposition Right Upper Femur with Internal Fixation Device, Open Approach (ICD-10-PCS; principal; 2017-11-21)
DX: S72.141A Displaced intertrochanteric fracture of right femur, initial encounter for closed fracture (principal); J96.91 Respiratory failure, unspecified with hypoxia; I50.21 Acute systolic (congestive) heart failure; N17.9 Acute kidney failure, unspecified; E44.0 Moderate protein-calorie malnutrition; Z68.1 Body mass index [BMI] 19.9 or less, adult; G30.9 Alzheimer's disease, unspecified; F02.80 Dementia in other diseases classified elsewhere, unspecified severity, without behavioral disturbance, psychotic disturbance, mood disturbance, and anxiety; I11.0 Hypertensive heart disease with heart failure; H40.9 Unspecified glaucoma; K21.9 Gastro-esophageal reflux disease without esophagitis; F41.9 Anxiety disorder, unspecified; G89.11 Acute pain due to trauma; E03.9 Hypothyroidism, unspecified; J84.10 Pulmonary fibrosis, unspecified; Z66 Do not resuscitate; Z91.81 History of falling; W06.XXXA Fall from bed, initial encounter; Y92.122 Bedroom in nursing home as the place of occurrence of the external cause
CPT/HCPCS: 36415; 70450; 71045; 72170; 76001; 80048; 80053; 81003; 82553; 82805; 83735; 83880; 84100; 84484; 85025; 93005; 93010; 94640; 96374; 96375; C1713; G0390; G8981-GP-CM; G8982-GP-CK; G8987-GO-CM; G8988-GO-CM; G8989-GO-CM; J0131; J0670; J0690; J1200; J1644; J1885; J1940; J2270; J2310; J2370; J2405; J2920; J3010; J3475; J3490; J7050; J7620; Q0162